=== PATIENT | male | born 1935 | race Asian ===

== ENCOUNTER 2024-08-28 19:34 | Inpatient (IN) | payer MEDICARE, MEDICAID, SELFPAY ==
[2024-08-28 19:35] VITALS: BMI 20.5
[2024-08-28 20:21] VITALS: BP 96/65; PULSE 69; RESP 18; TEMP 36.6; O2SAT 96
--- NOTE | 2024-08-28 20:32 | XR_ITS ---
Examination: CT abdomen and pelvis without contrast. Coronal 3-D reconstructions. Sagittal 2-D reconstructions. Date and time of exam:August 28, 2024 1023 hrs. Comparison March 02, 2022 Indications: Abdominal pain and difficulty urinating today CTDI: vol (mGy): 4.76 DLP: (mGycm): 268 Technique: Axial images of the abdomen have been obtained, 3 mm slice thickness Intravenous contrast material has not been administered. Low dose protocols were performed. One or more of the following dose reduction techniques were used; automated exposure control, adjustment of the mA and/or KV according to patient size, use of iterative reconstruction technique. Findings: 26 mm upper right lobe liver lesion 15 mm left lobe liver lesion Spleen not enlarged No gallstones No pancreatic mass Abdominal aortic calcification no aneurysmal dilatation No hydronephrosis Normal appendix No bowel obstruction Fluid distended small bowel loops, multiple in the pelvis Urinary bladder contracted around a Edwards catheter A small portion of the urinary bladder is present in a right inguinal hernia Transverse prostate dimension 4.3 cm Advanced degenerative disc disease L4-L5, L5-S1 Impression: Liver lesions as above, recommend hepatic sonography to assess for possible hemangiomas Fluid distended small bowel loops in the lower abdomen and pelvis, small bowel obstruction pattern Consider Gastrografin small bowel series follow-up Significant prostatomegaly A small portion of the urinary bladder is present in a right inguinal hernia
--- NOTE | 2024-08-28 20:33 | PD.EDRME ---
Rapid Medical Screening Exam RME Arrival date/time: 08/28/24 19:34 89-year-old male presents emergency department complaining of diffuse abdominal pain and difficulty urinating that started today. Chief Complaint: Urogenital-Male Time Seen by Provider: 08/28/24 20:27 Vital signs: Vital Signs Temperature 97.8 F 08/28/24 20:21 Pulse Rate 69 08/28/24 20:21 Respiratory Rate 18 08/28/24 20:21 Blood Pressure 96/65 08/28/24 20:21 Pulse Oximetry (%) 96 08/28/24 20:21 Oxygen Delivery Method Room Air 08/28/24 20:21 Vital signs reviewed by provider: Yes
[2024-08-28] MEDS: KETOROLAC INJ 60 MG/2 ML VIAL 30 MG IM (20:42)
[2024-08-28 21:28] LABS: Basophils % (Auto) 0 % (0-2.5); Eosinophils # (Auto) 0.4 Thou/mm3 (0.0-0.5); Eosinophils % (Auto) 6 % (0-10); Hematocrit 40.3 % (41.0-53.0); Hemoglobin 13.3 g/dL (13.5-16.0); Immature Granulocytes % (Auto) 0 % (0-0); Immature Granulocytes Auto 0.01 Thou/mm3 (0.00-0.00); Lymphocytes # (Auto) 1.8 Thou/mm3 (1.0-4.8); Lymphocytes % (Auto) 28 % (10-50); Mean Corpuscular Hemoglobin 30.9 pg (25.0-35.0); Mean Corpuscular Volume 94 fL (80-100); Monocytes # (Auto) 0.7 Thou/mm3 (0.0-0.8); Monocytes % (Auto) 10 % (0-12); Neutrophils # (Auto) 3.7 Thou/mm3 (1.8-7.7); Neutrophils % (Auto) 56 % (37-80); Nucleated Red Blood Cell % 0 /100 WBC (0); Platelet Count 289 Thou/mm3 (140-440); RDW Standard Deviation 46.2 fL (35.1-43.9); White Blood Count 6.7 Thou/mm3 (3.8-10.6)
[2024-08-28 22:03] LABS: Anion Gap 9 (7-16); Blood Urea Nitrogen 17 mg/dL (9-23); Chloride 102 mMol/L (98-107); Sodium 142 mMol/L (136-145)
[2024-08-28 22:04] LABS: Alanine Aminotransferase 18 U/L (10-49); Albumin, Serum 4.5 gm/dL (3.4-4.8); Albumin/Globulin Ratio 1.6 (1.2-2.2); Alkaline Phosphatase 91 U/L (46-116); Aspartate Amino Transferase 26 U/L (0-34); BUN/Creatinine Ratio 17 Ratio (12-20); Estimated Creatinine Clearance 40.1 mL/min (>60); Globulin 2.8 gm/dL (2.3-3.5); Glucose 121 mg/dL (74-106); Lipase 55 U/L (12-53); Osmolality,Calculated 285 (275-295); Total Protein 7.3 gm/dL (5.7-8.2); eGFR > 60 See Note
[2024-08-28 22:21] LABS: Collection Type, Urine Clean Catch; Squamous Epithelial Cell,Urine 0 /hpf (0-5)
[2024-08-28 22:38] LABS: Bilirubin,Urine Negative (Negative); Blood,Urine 3+ (Negative); Budding Yeast,Urine Present; Clarity,Urine Clear (Clear/Hazy); Color,Urine Lt-Yellow (Lt Yel-Yel); Glucose, Urine Negative (Negative); Ketones,Urine Negative (Negative); Leukocyte Esterase,Urine Positive (Negative); Nitrite,Urine Negative (Negative); Protein,Urine Trace (Neg - Trace); RBC,Urine 24 /hpf (0-3); Specific Gravity,Urine 1.016 (1.001-1.035); Urobilinogen,Urine Negative mg/dL (0.0-1.0); WBC,Urine 98 /hpf (0-5)
[2024-08-28 22:39] LABS: Culture Indicated,Urine Yes
[2024-08-28] MEDS: LIDOCAINE JELLY 2% (Urojet) 10 ML TUBE TOP (22:43)
--- NOTE | 2024-08-28 23:56 | PD.EDURI ---
Upper Respiratory Inf. RME/HPI General Chief Complaint: Urogenital-Male Stated Complaint: DIFFICULTY AND PAIN WITH URINATING Time Seen by Provider: 08/28/24 20:27 Arrival date/time: 08/28/24 19:34 89-year-old male presents emergency department complaining of diffuse abdominal pain and difficulty urinating that started today. RME / HPI RME / HPI Narrative: 08/28/24 19:34 89-year-old male presents emergency department complaining of diffuse abdominal pain and difficulty urinating that started today. Related Data Home Medications ?Medication ?Instructions ?Recorded ?Confirmed albuterol sulfate 90 mcg/actuation 2 puff inhalation Q4H PRN SOB 09/11/21 03/03/22 aerosol inhaler amlodipine 5 mg tablet 1 tab PO DAILY 03/03/22 03/03/22 atorvastatin 10 mg tablet 1 tab PO HS 03/03/22 03/03/22 loratadine 10 mg tablet 1 tab PO DAILY 03/03/22 03/03/22 montelukast 10 mg tablet 1 tab PO DAILY 03/03/22 03/03/22 Previous Rx's ?Medication ?Instructions ?Recorded fluticasone propionate 110 1 puff inhalation BID #12 grams 09/16/21 mcg/actuation HFA aerosol inhaler (Flovent HFA) codeine 10 mg-guaifenesin 100 mg/5 5 ml PO Q6H PRN cough #237 mL 05/17/22 mL oral liquid (Guaiatussin AC) [id number]-[id number] 5 10 ml PO Q4H PRN cough #237 mL 05/21/22 mg-10 mg-100 mg/5 mL oral liquid (Adult Robitussin Peak Cold M-S) benzonatate 200 mg capsule 200 mg PO BID PRN cough #20 caps 08/23/23 doxycycline monohydrate 100 mg 100 mg PO BID #20 tabs 08/23/23 tablet Allergies Allergy/AdvReac Type Severity Reaction Status Date / Time No Known Allergies Allergy Verified 08/23/23 08:44 Course Orders Category Date Time Status [place] to [place] Routine Care 08/28/24 20:[address] abdomen pelvis wo con Stat Exams 08/28/24 20:32 Completed CBC Stat Lab 08/28/24 20:49 Completed CMP [Comprehensive Metabolic Panel] Stat Lab 08/28/24 20:49 Completed Lipase Stat Lab 08/28/24 20:49 Completed Urinalysis, C/S if Indicated Stat Lab 08/28/24 22:00 Completed Urine Culture Stat Lab 08/28/24 22:00 Received Ketorolac Inj [Toradol Inj] Med 08/28/24 20:32 Discontinued 30 mg IM X1 ONE Lidocaine Jelly 2% Urojet [Xylocaine Jelly 2% Urojet] Med 08/28/24 21:49 Discontinued See Dose Instructions TOP X1 ONE Vital Signs Vital signs: Vital Signs Temperature 97.8 F 08/28/24 20:21 Pulse Rate 69 08/28/24 20:21 Respiratory Rate 18 08/28/24 20:21 Blood Pressure 96/65 08/28/24 20:21 Pulse Oximetry (%) 96 08/28/24 20:21 Oxygen Delivery Method Room Air 08/28/24 20:21 Upper Respiratory Infection Medications / Prescriptions Medication administrations:: Medication Administration History Discontinued Medications Ketorolac Tromethamine (Ketorolac Inj 60 Mg/2 Ml Vial) 30 mg IM X1 ONE Stop: 08/28/24 20:33 Last Admin: 08/28/24 20:42 Dose: 30 mg Documented By: Lidocaine HCl (Lidocaine Jelly 2% (Urojet) 10 Ml Tube) 0 ml TOP X1 ONE Stop: 08/28/24 21:50 Last Admin: 08/28/24 22:43 Dose: 10 ml Documented By: Discharge Plan Prescriptions/Referrals Prescriptions/Med Rec: No Action atorvastatin 10 mg tablet 1 tab PO HS montelukast 10 mg tablet 1 tab PO DAILY loratadine 10 mg tablet 1 tab PO DAILY Patient Comments: TAKE 1 TABLET BY MOUTH DAILY NEEDED FOR ALLERGIES amlodipine 5 mg tablet 1 tab PO DAILY Patient Comments: TAKE 1 TABLET BY MOUTH EVERY DAY FOR HIGH BLOOD PRESSURE codeine-guaifenesin [Guaiatussin AC] 10-100 mg/5 mL liquid 5 ml PO Q6H PRN (Reason: cough) Qty: 237 0RF albuterol sulfate 90 mcg/actuation HFA aerosol inhaler 2 puff INHALATION Q4H PRN (Reason: SOB) fluticasone propionate [Flovent HFA] 110 mcg/actuation HFA aerosol inhaler 1 puff inhalation BID Qty: 12 0RF Rx Instructions: administer with spacer Adult Robitussin Peak Cold M-S 5-10-100 mg/5 mL liquid 10 ml PO Q4H PRN (Reason: cough) Qty: 237 0RF doxycycline monohydrate 100 mg tablet 100 mg PO BID Qty: 20 0RF benzonatate 200 mg capsule 200 mg PO BID PRN (Reason: cough) Qty: 20 0RF Patient/Caregiver Discharge Instructions Print Language: Sami
[2024-08-29] VITALS (9 sets, daily range): BP systolic 132–176; BP diastolic 72–96; PULSE 68–86; RESP 15–18; TEMP 36.6–37.1; O2SAT 94–99; BMI 20.5
--- NOTE | 2024-08-29 01:56 | PC.NURSE ---
RECEIVED PT FROM [facility], PT CAME BECAUSE HE IS UNABLE TO URINATE, RME NURSE INSERTED MOREAU AND LEG BAG APPLIED, SMALL AMOUNT OF URINE CAME OUT AFTER. PT ALSO C/O ABD PAIN.
--- NOTE | 2024-08-29 02:19 | EDNOTE_ITS ---
ED Male Genitalurinary RME/HPI General Chief complaint: Urogenital-Male Stated complaint: DIFFICULTY AND PAIN WITH URINATING Time Seen by Provider: 08/28/24 20:27 Source: patient Arrival date/time: 08/28/24 19:34 Mode of arrival: ambulatory Limitations: no limitations RME / HPI RME / HPI Narrative: DR MARTA COULTER ED EVALUATION: 89-year-old male who presents to the emergency department via private auto for complaints of difficulty urinating. Patient also notes pain when urination. Patient also reports generalized abdominal pain. Denies any other symptoms. Related Data Home Medications ?Medication ?Instructions ?Recorded ?Confirmed albuterol sulfate 90 mcg/actuation 2 puff inhalation Q4H PRN SOB 09/11/21 03/03/22 aerosol inhaler amlodipine 5 mg tablet 1 tab PO DAILY 03/03/22 03/03/22 atorvastatin 10 mg tablet 1 tab PO HS 03/03/22 03/03/22 loratadine 10 mg tablet 1 tab PO DAILY 03/03/22 03/03/22 montelukast 10 mg tablet 1 tab PO DAILY 03/03/22 03/03/22 Previous Rx's ?Medication ?Instructions ?Recorded fluticasone propionate 110 1 puff inhalation BID #12 grams 09/16/21 mcg/actuation HFA aerosol inhaler (Flovent HFA) codeine 10 mg-guaifenesin 100 mg/5 5 ml PO Q6H PRN cough #237 mL 05/17/22 mL oral liquid (Guaiatussin AC) [id number]-FT-nbpuvllajno 5 10 ml PO Q4H PRN cough #237 mL 05/21/22 mg-10 mg-100 mg/5 mL oral liquid (Adult Robitussin Peak Cold M-S) benzonatate 200 mg capsule 200 mg PO BID PRN cough #20 caps 08/23/23 doxycycline monohydrate 100 mg 100 mg PO BID #20 tabs 08/23/23 tablet Allergies Allergy/AdvReac Type Severity Reaction Status Date / Time No Known Allergies Allergy Verified 08/23/23 08:44 Review of Systems Review of Systems Systems Reviewed: All systems reviewed, normal except as documented Past Medical History Past Medical History CARDIAC: Positive Cardiac Disorders; Negative Congestive Heart Failure RESPIRATORY: Positive Chronic Obstructive Pulmonary Disease (COPD); Negative Asthma GENITOURINARY: Negative Renal Disease ENDOCRINE: Negative Diabetes Mellitus Type 1 or Diabetes Mellitus Type 2 HEMATOLOGIC: Negative Sickle Cell Disease Social History SMOKING STATUS: Never smoker ED Exam Narrative Physical exam: GENERAL APPEARANCE: alert and oriented x 4, well-developed, well-nourished, no acute distress VITALS: All vitals were reviewed and the pulse ox is 95% on room air, which is normal according to my interpretation. HEENT: Normocephalic, atraumatic; pupils equal, round, reactive to light; EOMI; mucous membranes pink, moist; oropharynx clear NECK: Supple LUNGS: CTABL; no wheezes, no rales, no rhonchi HEART: Regular rate, regular rhythm; normal S1, S2; no murmurs ABDOMEN: non distended; normal BS; soft, no tenderness, no guarding, no rebound; no masses, no organomegaly, no hernia BACK: no CVA tenderness EXTREMITIES: atraumatic; no edema NEUROLOGIC: awake; alert and oriented x4; cranial nerves II-XII grossly intact; no focal sensory or motor deficits PSYCHIATRIC: appropriate mood and affect SKIN: warm, dry, normal color; no rashes General Limitations: Present no limitations Course Quality Measures none Orders Category Date Time Status [place] to [place] Routine Care 08/28/24 20:[address] abdomen pelvis wo con Stat Exams 08/28/24 20:32 Completed CBC Stat Lab 08/28/24 20:49 Completed CMP [Comprehensive Metabolic Panel] Stat Lab 08/28/24 20:49 Completed Lipase Stat Lab 08/28/24 20:49 Completed Urinalysis, C/S if Indicated Stat Lab 08/28/24 22:00 Completed Urine Culture Stat Lab 08/28/24 22:00 Received Ketorolac Inj [Toradol Inj] Med 08/28/24 20:32 Discontinued 30 mg IM X1 ONE Lidocaine Jelly 2% Urojet [Xylocaine Jelly 2% Urojet] Med 08/28/24 21:49 Discontinued See Dose Instructions TOP X1 ONE Vital Signs Vital signs: Vital Signs Temperature 97.8 F 08/28/24 20:21 Pulse Rate 69 08/28/24 20:21 Respiratory Rate 18 08/28/24 20:21 Blood Pressure 96/65 08/28/24 20:21 Pulse Oximetry (%) 96 08/28/24 20:21 Oxygen Delivery Method Room Air 12/15/24 20:21 Urogenital - Male MDM Narrative MDM Narrative:: Scribe Attestation: I, Elsa Vasquez, am scribing for and in the presence of Dr. Gomes. Provider Notation: Although this document has been carefully reviewed, there may still be some phonetic and other typographical errors. These errors are purely grammatical due to imperfections in the software program and should not be construed in any way to compromise the substance of the patient's medical care during this visit. Patient data External records reviewed:: [facility] previous records Clinical information provided by:: patient Social determinants that could affect healthcare access:: none Patient has the following chronic illnesses:: COPD How is presenting disease/condition affected by chronic disease/condition?: uneffected by Evaluation data The following diagnostics were reviewed and interpreted by me:: lab results and radiology exam(s) Lab and/or radiology exams considered but not ordered:: n/a Interpretation Summary: I personally reviewed the radiology data and agree with the radiologist's interpretation. Examination: CT abdomen and pelvis without contrast. Coronal 3-D reconstructions. Sagittal 2-D reconstructions. Date and time of exam:August 28, 2024 1023 hrs. Comparison March 02, 2022 Indications: Abdominal pain and difficulty urinating today Findings: 26 mm upper right lobe liver lesion 15 mm left lobe liver lesion Spleen not enlarged No gallstones No pancreatic mass Abdominal aortic calcification no aneurysmal dilatation No hydronephrosis Normal appendix No bowel obstruction Fluid distended small bowel loops, multiple in the pelvis Urinary bladder contracted around a Edwards catheter A small portion of the urinary bladder is present in a right inguinal hernia Transverse prostate dimension 4.3 cm Advanced degenerative disc disease L4-L5, L5-S1 Impression: Liver lesions as above, recommend hepatic sonography to assess for possible hemangiomas Fluid distended small bowel loops in the lower abdomen and pelvis, small bowel obstruction pattern Consider Gastrografin small bowel series follow-up Significant prostatomegaly A small portion of the urinary bladder is present in a right inguinal hernia Dictated By: Alexey Ramos MD Medications / Prescriptions Medications or Prescriptions considered but not ordered:: n/a Medication administrations:: Medication Administration History Acetaminophen (Acetaminophen 325 Mg Tablet) 650 mg PO Q6H PRN PRN Reason: Pain 1-3 or Fever >100.3 Stop: 09/28/24 04:25 Heparin Sodium (Porcine) (Heparin Sod Inj 5000 Unit/Ml Vial) 5,000 unit SC Q12HR MONALISA Stop: 09/12/24 08:59 Ondansetron HCl (Ondansetron Inj 2 Mg/Ml Inj 2 Ml) 4 mg IV Q6H PRN; Protocol PRN Reason: NAUSEA OR VOMITING Stop: 09/28/24 04:25 Discontinued Medications Ketorolac Tromethamine (Ketorolac Inj 60 Mg/2 Ml Vial) 30 mg IM X1 ONE Stop: 08/28/24 20:33 Last Admin: 08/28/24 20:42 Dose: 30 mg Documented By: Lidocaine HCl (Lidocaine Jelly 2% (Urojet) 10 Ml Tube) 0 ml TOP X1 ONE Stop: 08/28/24 21:50 Last Admin: 08/28/24 22:43 Dose: 10 ml Documented By: as above Consultations Consultation(s) initiated? (list below): Yes Consultation #1 (Physician, Specialty, Details): Hospitalist made aware of the patient?s HPI, PMHx, lab and/or radiology results. Treatment plan was discussed. Will admit for further evaluation and management. Accepts patient for admission. Time: 02:50 Diagnosis Urogenital Male Differential Diagnosis: urinary tract infection, epididymitis, prostatitis, acute retention of urine and inguinal hernia Admission Indicated Admission indicated?: indicated Admission Request Was there a request for admission?: Yes Admission Attestation Admission request attestation: Discussed case with [] from Hospitalist service regarding admission. Discussed patients ED course, exam findings, labs, and radiology results. The Hospitalist [agrees,declines] to accept the patient for admission. Disposition Plan Disposition Plan: Admit Discharge Plan Plan Patient Disposition: HOME (Self Care) Disposition Comment: Stable Patient/Caregiver Discharge Instructions Discharge Activity: activity as tolerated
[2024-08-29 05:36] LABS: Basophils % (Auto) 0 % (0-2.5); Eosinophils # (Auto) 0.2 Thou/mm3 (0.0-0.5); Eosinophils % (Auto) 2 % (0-10); Hematocrit 36.2 % (41.0-53.0); Hemoglobin 12.3 g/dL (13.5-16.0); Immature Granulocytes % (Auto) 0 % (0-0); Immature Granulocytes Auto 0.03 Thou/mm3 (0.00-0.00); Lymphocytes # (Auto) 1.5 Thou/mm3 (1.0-4.8); Lymphocytes % (Auto) 16 % (10-50); Mean Corpuscular Hemoglobin 31.4 pg (25.0-35.0); Mean Corpuscular Volume 92 fL (80-100); Monocytes # (Auto) 0.9 Thou/mm3 (0.0-0.8); Monocytes % (Auto) 10 % (0-12); Neutrophils # (Auto) 6.8 Thou/mm3 (1.8-7.7); Neutrophils % (Auto) 72 % (37-80); Nucleated Red Blood Cell % 0 /100 WBC (0); Platelet Count 252 Thou/mm3 (140-440); RDW Standard Deviation 45.5 fL (35.1-43.9); Red Blood Count 3.92 Miln/mm3 (4.50-5.90); White Blood Count 9.4 Thou/mm3 (3.8-10.6)
[2024-08-29 05:59] LABS: Alanine Aminotransferase 17 U/L (10-49); Albumin, Serum 4.2 gm/dL (3.4-4.8); Albumin/Globulin Ratio 1.8 (1.2-2.2); Alkaline Phosphatase 75 U/L (46-116); Anion Gap 8 (7-16); Aspartate Amino Transferase 11 U/L (0-34); BUN/Creatinine Ratio 20 Ratio (12-20); Bilirubin,Total 0.7 mg/dL (0.3-1.2); Blood Urea Nitrogen 22 mg/dL (9-23); Calcium 8.9 mg/dL (8.3-10.6); Calcium (Corrected) 8.9 mg/dL (8.5-10.1); Carbon Dioxide 29.2 mMol/L (20.0-31.0); Cardiac Risk Estimate 2.2 RATIO (4.0-6.7); Chloride 102 mMol/L (98-107); Cholesterol 119 mg/dL (132-200); Creatinine (Component) 1.1 mg/dL (0.6-1.3); Estimated Creatinine Clearance 36.4 mL/min (>60); Globulin 2.4 gm/dL (2.3-3.5); Glucose 105 mg/dL (74-106); HDL Cholesterol 54 mg/dL (40-60); LDL Cholesterol,Calculated 44 mg/dL (0-130); Magnesium 1.8 mg/dL (1.6-2.6); Osmolality,Calculated 280 (275-295); Sodium 139 mMol/L (136-145); Thyroid Stimulating Hormone 0.56 uIU/mL (0.55-4.78); Total Protein 6.6 gm/dL (5.7-8.2); Triglycerides 105 mg/dL (30-150); eGFR > 60 See Note
[2024-08-29] MEDS: ACETAMINOPHEN 500 MG TABLET PO (06:34)
--- NOTE | 2024-08-29 06:39 | XR_ITS ---
Examination: Small bowel series with KUBs AP supine abdomen 4 views Exam date and time: August 29, 2024 0812 hours INDICATIONS: Abdominal pain and distention this week, dilated small bowel loops on CT abdomen pelvis August 28, 2024 10:23 PM TECHNIQUE AND FINDINGS: Soil Surveyor AP supine abdomen single view demonstrates air distended small bowel loops Patient received 120 cc Gastrografin, immediate 40 minutes one hour films obtained Contrast in mildly distended small bowel loops Contrast in the right colon at 1 hour IMPRESSION: Negative for small bowel obstruction One additional one hour delayed film recommended
--- NOTE | 2024-08-29 06:47 | PD.RESHP ---
Documentation for date of: 08/29/24 [facility] History of Present Illness History of present illness: The patient is an 89-year-old male with past medical history of hypertension and hyperlipidemia who presented to the ED on 08/29/2024 complaints of abdominal pain and difficulty urinating of 5 days duration. Patient is a poor historian as well as son at bedside, but the report that for the past 5 days has had abdominal pain intermittently, not associated nausea vomiting constipation or diarrhea, last bowel movement was in the ED. He also reported that he has had difficulty urinating and a very weak stream as well as hesitancy in the same duration. The patient was found to have a UTI and was prescribed Bactrim about 2 days ago, but 3 presented with persistent pain. He has not had a similar episode in the past and has otherwise been healthy. ED course: In ED, patient was febrile and hypertensive, complaining of abdominal pain. Labs showed WBC 9.4 Hgb 12.3 PLT 252. CMP- Unremarkable UA positive for 3+ blood, 24RBCs and 98WBCs, but no bacteria. CTAP showed fluid distended loops with a small bowel obstruction pattern and significant prostatomegaly. The patient is being admitted for observation and rule out of SBO Review of Systems Review of Systems Narrative Review of Systems: GENERAL: Denies fevers/chills or diaphoresis. HEENT: Denies headache or visual/hearing changes. Denies nasal discharge. NEURO: Denies unusual weakness or difficulty speaking. CARDIO: Denies chest pain or palpitations. PULM: Denies SOB, coughing, or wheezing. GI: Admits abdominal pain, denies N/V/C/D/reflux/gas, bright red blood per rectum or melena. Reports having BMs. URO: Denies burning/itching/pain. Admits difficulty urinating MSK/EXT/SKIN: Denies joint/skeletal/muscle pain, issues/changes in upper or lower extremities, itchiness, or superficial pain. PSYCH: Cooperative, pleasant mood & affect. Exam Vital Signs Temp Pulse Resp BP Pulse Ox O2 Del Method 98.8 F 71 16 169/79 H 98 Room Air 08/29/24 06:07 08/29/24 05:53 08/29/24 05:53 08/29/24 05:53 08/29/24 05:53 08/29/24 05:53 Narrative Exam GENERAL: AAOX3 NEURO: INSTRUMENTATION AND CONTROLS TECHNICIAN grossly intact, moves extremities x4 HEENT: Moist mucosa. Eyes open, symmetrical, & clear CARDIO: No chest pain on palpation. Heart RRR, no obvious murmurs PULM: No noted coughing/dyspnea. Lungs CTA B/L GI: Abdomen soft, nondistended, mildly tender suprapubic on palpation. BSx4 URO/NAIL KEGGER:: No further abnormalities noted. SKIN/MSK/EXT: No wounds/rashes/edema/amputations, no pain on palpation. Pedal pulses present B/L Results: Labs 08/29/24 15:01 08/29/24 05:14 Labs: Short CBC 08/28/24 08/29/24 Range/Units 20:49 05:14 WBC 6.7 9.4 D (3.8-10.6) Thou/mm3 Hgb 13.3 L 12.3 L (13.5-16.0) g/dL Hct 40.3 L 36.2 L (41.0-53.0) % Plt Count 289 252 D (140-440) Thou/mm3 [facility] 08/28/24 08/29/24 20:49 05:14 Sodium 142 139 Potassium 4.0 4.0 Chloride 102 102 Carbon Dioxide 31.0 29.2 BUN 17 22 Creatinine 1.0 1.1 Glucose 121 H 105 Calcium 10.0 8.9 Liver Function 08/28/24 08/29/24 Range/Units 20:49 05:14 Total Bilirubin 1.0 0.7 (0.3-1.2) mg/dL AST 26 11 (0-34) U/L ALT 18 17 (10-49) U/L Alkaline Phosphatase 91 75 (46-116) U/L Albumin 4.5 4.2 (3.4-4.8) gm/dL Urine 08/28/24 Range/Units 22:00 Urine Color Lt-Yellow (Lt Yel-Yel) Urine Clarity Clear (Clear/Hazy) Urine pH 6.0 (5.0-7.0) Ur Specific [place] 1.016 (1.001-1.035) Urine Protein Trace (Neg - Trace) Urine Glucose (UA) Negative (Negative) Quality Measures Quality Measures none Advance care planning discussed with:: patient and child Medications Home Medications and Allergies Home Medications ?Medication ?Instructions ?Recorded ?Confirmed ?Type albuterol sulfate 90 mcg/actuation 2 puff inhalation Q4H PRN SOB 09/11/21 08/29/24 History aerosol inhaler allopurinol 100 mg tablet 200 mg PO DAILY 08/29/24 08/29/24 History atorvastatin 20 mg tablet 20 mg PO HS 08/29/24 08/29/24 History fluticasone fur. 100 mcg-umeclid 1 inh inhalation DAILY 08/29/24 08/29/24 History 62.5 mcg-vilant 25 mcg inhalat.powder (Trelegy Ellipta) montelukast 10 mg tablet 10 mg PO DAILY 08/29/24 08/29/24 History Allergies Allergy/AdvReac Type Severity Reaction Status Date / Time No Known Allergies Allergy Verified 08/23/23 08:44 Visit Medications Acetaminophen (Acetaminophen 325 Mg Tablet) 650 mg PO Q6H PRN PRN Reason: Pain 1-3 or Fever >100.3 Stop: 09/28/24 04:25 Heparin Sodium (Porcine) (Heparin Sod Inj 5000 Unit/Ml Vial) 5,000 unit SC Q12HR MONALISA Stop: 09/12/24 08:59 Ondansetron HCl (Ondansetron Inj 2 Mg/Ml Inj 2 Ml) 4 mg IV Q6H PRN; Protocol PRN Reason: NAUSEA OR VOMITING Stop: 09/28/24 04:25 Discontinued Medications Acetaminophen (Acetaminophen 500 Mg Tablet) 500 mg PO X1 STA Stop: 08/29/24 06:16 Last Admin: 08/29/24 06:34 Dose: 500 mg Ketorolac Tromethamine (Ketorolac Inj 60 Mg/2 Ml Vial) 30 mg IM X1 ONE Stop: 08/28/24 20:33 Last Admin: 08/28/24 20:42 Dose: 30 mg Lidocaine HCl (Lidocaine Jelly 2% (Urojet) 10 Ml Tube) 0 ml TOP X1 ONE Stop: 08/28/24 21:50 Last Admin: 08/28/24 22:43 Dose: 10 ml Assessment & Plan Assessment Summary: The patient is an 89-year-old male with a past medical history of hypertension hyperlipidemia who presented to the ED on 08/29/2024 with complaints of abdominal pain and difficulty urinating of [address] abdomen pelvis showed distended loops of the small bowel obstruction and significant prostatomegaly. #Small bowel obstruction rule out Patient presenting with a 5-day history of abdominal pain. He denied associated nausea, vomiting, constipation and diarrhea and reports that he has been having bowel movements with the last bowel movement being during his ED visit. On examination, patient has no abdominal distention. CT abdomen pelvis showed fluid distended loops with small bowel obstruction pattern. Plan: -Admit to [facility] obs -Consider follow-up imaging #Prostatomegaly #?Benign prostatic hyperplasia The patient presented with a 5-day history of abdominal pain and difficulty urinating. He has not had a similar symptom in the past and has never seen urology. CT abdomen showed significant prostatomegaly. The patient had Edwards catheter inserted in the ED and that improved his pain. Patient was said to have only had about 350 mL. Plan: -Consider tamsulosin -Patient will benefit from urology follow-up #History of hypertension #History of hyperlipidemia The patient is on atorvastatin 20 mg p.o. but states he is not on any medications for hypertension. Blood pressure on admission was elevated at 163/79. Plan: -Lisinopril 10 mg daily -Continue atorvastatin 20 mg Health maintenance: Dispo: MedSurg Obs Diet: NPO DVT: SC Heparin Edwards: None Lines: Peripheral Med Rec: Pending, f/u PT: Not ordered Code: Full Case was discussed with attending physician, Dr Jessica Muro MD PGY-1 Attending Provider Attestation/Addendum 89-year-old male patient with hypertension, hyperlipidemia, BPH, asthma presents with difficulty urinating and been treated for UTI with Bactrim. Patient has symptoms of urinary retention. He complained of abdominal pain moderate mainly in the lower quadrant region. He denies nausea and vomiting. He has no weight loss. The patient was found to have small bowel obstruction on CT scan. He has prostatomegaly. Patient was inserted the Edwards catheter. He drained clear urine no blood. He is also being admitted for SBO found on CT scan.
[2024-08-29] MEDS: HEPARIN SOD INJ 5000 UNIT/ML VIAL SC (09:33)
--- NOTE | 2024-08-29 10:25 | XR_ITS ---
Examination: Abdomen AP single view Technique: AP portable supine abdomen, single view Exam date and time: August 29, 2024 1033 hours INDICATIONS: Two-hour delayed film post small bowel series today, abdominal pain and distention FINDINGS: Contrast in the colon IMPRESSION: Negative for small bowel obstruction
[2024-08-29 15:11] LABS: Hematocrit 39.6 % (41.0-53.0); Hemoglobin 13.4 g/dL (13.5-16.0)
[2024-08-29] MEDS: HYDROcodone/APAP 5/325 TABLET 1 TAB PO (16:04)
--- NOTE | 2024-08-29 17:07 | ESPR_ITS ---
<Statement entered by Alton Connell MD - 08/29/24 18:09> Patient was seen and examined at the bedside. Patient was admitted for small bowel obstruction pattern seen on CT scan abdomen however patient has been having bowel movements. Another reason for keeping the patient today is hematuria seen in Edwards catheter we added tamsulosin and perform manual bladder irrigation. Resumed his diet which he tolerated well. Family was explained that we will keep him and likely observe any further bleeding/hematuria from the bladder tomorrow morning. Repeat H&H was was stable. Continue current management. All labs and orders were reviewed. I saw and examined the patient, and I agree with current management stated by Dr Arnie MD,PGY1. Plan of care was discussed with the attending physician and resident physician. Disclaimer: Despite multiple revisions, due to the dictation software being used, the document bellow may not be free of grammatical errors including phonetic/typographic errors. However, this does not deter from our commitment to providing health care in the patient's best interest in mind. Dr. Becki MD, PGY 2 Documentation for date of: 08/29/24 Subjective Subjective Interval history: Patient speaks Tagalog interaction facilitated by registered healthcare architecture technician. Patient was seen and examined at bedside this AM. No acute exents overnight. Patient tolerating diet, adequate urine output and mentation is at baseline. Patient states that he is currently passing flatus and had a bowel movement in the ED this a.m. Patient was started on diet and was anticipated to be discharged. However he developed hematuria from his Edwards catheter secondary to his BPH and is currently being held for investigation Exam Vital Signs Temp Pulse Resp BP Pulse Ox O2 Del Method 98.4 F 86 17 142/72 H 95 Room Air 08/29/24 16:35 08/29/24 16:35 08/29/24 16:35 08/29/24 16:35 08/29/24 16:35 08/29/24 16:35 Narrative Exam Constitutional Alert, oriented x 3 and comfortable. Elderly male, cachectic, temporal wasting HEENT Vision grossly intact. Patent nares. Trachea midline Respiratory Chest normal on inspection and clear auscultation bilaterally Cardiovascular S1 and S2 audible, RRR. No murmurs carotid bruit. No gross JVD. Abdominal Soft and non tender to palpation in all quadrants. BS + Genitourinary No bladder tenderness, no flank pain. Normal to palpation Musculoskeletal Extremities tone within normal limits. No LE edema. Neurological CN II - XII grossly intact. Extremity motor and sensation grossly intact. Skin Warm, dry and intact. No apparent lesions. Psychiatric Patient has good affect, is cooperative Objective Labs 08/30/24 04:19 08/30/24 04:19 Labs: Laboratory Results - last 24 hr 08/28/24 08/28/24 08/29/24 20:49 22:00 05:14 WBC 6.7 9.4 D RBC 4.30 L 3.92 L Hgb 13.3 L 12.3 L Hct 40.3 L 36.2 L MCV 94 92 MCH 30.9 31.4 MCHC 33.0 34.0 RDW Std Deviation 46.2 H 45.5 H Plt Count 289 252 D Neut % (Auto) 56 72 Lymph % (Auto) 28 16 [place] % (Auto) 10 10 Eos % (Auto) 6 2 Baso % (Auto) 0 0 Neut # (Auto) 3.7 6.8 Lymph # (Auto) 1.8 1.5 [place] # (Auto) 0.7 0.9 H Eos # (Auto) 0.4 0.2 Baso # (Auto) 0.0 0.0 Immature Gran # (Auto) 0.01 H 0.03 H Absolute Nucleated RBC 0.00 0.00 Immature Gran % 0 0 Nucleated RBC % 0 0 Sodium 142 139 Potassium 4.0 4.0 Chloride 102 102 Carbon Dioxide 31.0 29.2 Anion Gap 9 8 BUN 17 22 Creatinine 1.0 1.1 Estim Creat Clear Calc 40.1 L 36.4 L eGFR > 60 > 60 BUN/Creatinine Ratio 17 20 Glucose 121 H 105 Calculated Osmolality 285 280 Calcium 10.0 8.9 Corrected Calcium 10.0 8.9 Magnesium 1.8 Total Bilirubin 1.0 0.7 AST 26 11 ALT 18 17 Alkaline Phosphatase 91 75 Total Protein 7.3 6.6 Albumin 4.5 4.2 Globulin 2.8 2.4 Albumin/Globulin Ratio 1.6 1.8 Triglycerides 105 Cholesterol 119 L LDL Cholesterol, Calc 44 HDL Cholesterol 54 Cholesterol/HDL Ratio 2.2 L Lipase 55 H TSH 0.56 Ur Collection Type Clean Catch Urine Color Lt-Yellow Urine Clarity Clear Urine pH 6.0 Ur Specific [place] 1.016 Urine Protein Trace Urine Glucose (UA) Negative Urine Ketones Negative Urine Blood 3+ A Urine Nitrite Negative Urine Bilirubin Negative Urine Urobilinogen (Auto) Negative Ur Leukocyte Esterase Positive Urine RBC 24 H Urine WBC 98 H Ur Squamous Epith Cells 0 Urine Bacteria None Urine Yeast (Budding) Present A Ur Culture Indicated? Yes 08/29/24 15:01 WBC RBC Hgb 13.4 L Hct 39.6 L MCV MCH MCHC RDW Std Deviation Plt Count Neut % (Auto) Lymph % (Auto) [place] % (Auto) Eos % (Auto) Baso % (Auto) Neut # (Auto) Lymph # (Auto) [place] # (Auto) Eos # (Auto) Baso # (Auto) Immature Gran # (Auto) Absolute Nucleated RBC Immature Gran % Nucleated RBC % Sodium Potassium Chloride Carbon Dioxide Anion Gap BUN Creatinine Estim Creat Clear Calc eGFR BUN/Creatinine Ratio Glucose Calculated Osmolality Calcium Corrected Calcium Magnesium Total Bilirubin AST ALT Alkaline Phosphatase Total Protein Albumin Globulin Albumin/Globulin Ratio Triglycerides Cholesterol LDL Cholesterol, Calc HDL Cholesterol Cholesterol/HDL Ratio Lipase TSH Ur Collection Type Urine Color Urine Clarity Urine pH Ur Specific [place] Urine Protein Urine Glucose (UA) Urine Ketones Urine Blood Urine Nitrite Urine Bilirubin Urine Urobilinogen (Auto) Ur Leukocyte Esterase Urine RBC Urine WBC Ur Squamous Epith Cells Urine Bacteria Urine Yeast (Budding) Ur Culture Indicated? Quality Measures Quality Measures none Advance care planning discussed with:: patient Assessment & Plan Assessment Current Active Medications: Generic Name Dose Route Start Last Admin Trade Name Freq PRN Reason Stop Dose Admin Acetaminophen 650 mg 08/29/24 04:26 Acetaminophen 325 Mg Tablet PO 09/28/24 04:25 Q6H PRN Pain 1-3 or Fever >100.3 Hydrocodone Bitart/Acetaminophen 1 tab 08/29/24 14:29 Hydrocodone/Apap 5/325 Tablet PO 09/03/24 14:28 Q6HR PRN pain 4-7 Albuterol 2 puff 08/29/24 14:30 Albuterol Inh 8 Gm INH 09/28/24 14:29 Q4H PRN SHORTNESS OF BREATH Atorvastatin Calcium 20 mg 08/29/24 21:00 Atorvastatin Calcium 20 Mg Tablet PO 09/28/24 20:59 HS MONALISA Heparin Sodium (Porcine) 5,000 unit 08/29/24 09:00 08/29/24 09:33 Heparin Sod Inj 5000 Unit/Ml Vial SC 09/12/24 08:59 5,000 unit Q12HR MONALISA Administration Hydralazine HCl 10 mg 08/29/24 15:25 Hydralazine Inj 20 Mg/Ml Vial IV 09/28/24 15:24 Q4H PRN SBP > 180 AND HR < 100 Lisinopril 10 mg 08/29/24 09:00 Lisinopril 2.5 Mg Tablet PO 09/28/24 08:59 QDAY [facility] Montelukast Sodium 10 mg 08/30/24 09:00 Montelukast Sodium 10 Mg Tablet PO 09/29/24 08:59 DAILY [facility] Ondansetron HCl 4 mg 08/29/24 04:26 Ondansetron Inj 2 Mg/Ml Inj 2 Ml IV 09/28/24 04:25 Q6H PRN NAUSEA OR VOMITING Protocol Tamsulosin HCl 0.4 mg 08/29/24 21:00 Tamsulosin Hcl 0.4 Mg Capsule PO 09/28/24 20:59 HS MONALISA Plan Patient is 89-year-old male with a past medical history significant for essential hypertension, hyperlipidemia, BPH. Presented to the ED with a chief complaint of abdominal pain and difficulty urinating for 5 days. Patient was admitted for small bowel obstruction. 1. Small bowel obstruction?resolved Patient presented with abdominal pain Abdomen/pelvis CT significant for multiple liver lesions, fluid distended small bowel loops in lower abdomen and pelvis, SBO pattern, significant prostatomegaly. A small portion of urinary bladder and right inguinal hernia. Small bowel series showed resolution of SBO Patient is now passing flatus and had a bowel movement in the ED Plan: ? Allow cardiac diet 2. Gross Hematuria, likely 2/2 trauma Patient developed hematuria from his Edwards catheter Most likely secondary to traumatic cateterization and Heparin Plan: ? For manual irrigation of Edwards catheter ? For repeat H&H - Possible Urology consult 3. BPH Patient not on any home medication Significant prostatomegaly seen on CT scan Plan: ? Start tamsulosin 0.4 Mg p.o. at bedtime 4. Essential hypertension 5. Hyperlipidemia Patient not on any antihypertensives at home. Atorvastatin 20 Mg p.o. is as home medication Plan: ? Continue lisinopril 10 Mg p.o. daily ? Continue atorvastatin 20 Mg p.o. daily 6. Asthma Patient's home medications Singulair, albuterol inhaler and Trelegy Plan: ? Resume home medication Singulair 10 Mg p.o. daily ? DuoNebs ? Albuterol inhaler 2 puffs as needed Health maintenance: Disposition: Monitoring of hematuria and possible urology consult Diet: Cardiac Lines: pIVs GI Prophylaxis: None Thrombo Prophylaxis: None Code status: FULL CODE Plan of care discussed with Attending Dr. Lovelace and PGY2 Dr. Becki Gaitan MD PGY 1 Attending Provider Attestation/Addendum IShey, DO, attest that I was physically present for the walker portions of the service and evaluated the patient with the resident and I reviewed and discussed the case with the resident and agree with the resident's findings and plans of care as documented above Patient seen and evaluated in the ER this morning. Patient reports feeling improved and has had 4 bowel movements since receiving Gastrografin. KUB shows no evidence of SBO at this time. However, patient has gross hematuria and Edwards to leg bag. Will continue with manual irrigation through the sideport of Edwards catheter. Will continue to trend H&H as well. Patient continues to have mild tenderness in his lower abdomen. If hematuria does not resolve, will consider urology consult. Will add Flomax due to BPH. Patient remains hemodynamically stable at this time.
[2024-08-29] MEDS: ATORVASTATIN CALCIUM 20 MG TABLET PO (20:19)
[2024-08-29] MEDS: Artificial Tears 225 DROP/15 ML BTL BOTH EYES (20:19)
[2024-08-29] MEDS: TAMSULOSIN HCL 0.4 MG CAPSULE PO (20:19)
[2024-08-29] MEDS: MELATONIN 3 MG TABLET PO (20:58)
[2024-08-30] VITALS (10 sets, daily range): BP systolic 111–150; BP diastolic 54–84; PULSE 54–89; RESP 16–96; TEMP 36.4–37.1; O2SAT 94–97
[2024-08-30] MEDS: HYDROcodone/APAP 5/325 TABLET 1 TAB PO ×3 (02:23→19:23)
[2024-08-30 05:25] LABS: Basophils % (Auto) 0 % (0-2.5); Eosinophils # (Auto) 0.6 Thou/mm3 (0.0-0.5); Eosinophils % (Auto) 10 % (0-10); Hematocrit 34.8 % (41.0-53.0); Hemoglobin 11.6 g/dL (13.5-16.0); Immature Granulocytes % (Auto) 0 % (0-0); Immature Granulocytes Auto 0.01 Thou/mm3 (0.00-0.00); Lymphocytes # (Auto) 1.4 Thou/mm3 (1.0-4.8); Lymphocytes % (Auto) 24 % (10-50); Mean Corpuscular HGB Conc 33.3 g/dl (31.0-37.0); Mean Corpuscular Hemoglobin 31.1 pg (25.0-35.0); Mean Corpuscular Volume 93 fL (80-100); Monocytes # (Auto) 0.6 Thou/mm3 (0.0-0.8); Monocytes % (Auto) 9 % (0-12); Neutrophils # (Auto) 3.4 Thou/mm3 (1.8-7.7); Neutrophils % (Auto) 57 % (37-80); Nucleated Red Blood Cell % 0 /100 WBC (0); Platelet Count 240 Thou/mm3 (140-440); RDW Standard Deviation 46.5 fL (35.1-43.9); Red Blood Count 3.73 Miln/mm3 (4.50-5.90); White Blood Count 6.1 Thou/mm3 (3.8-10.6)
[2024-08-30 06:03] LABS: Alanine Aminotransferase 15 U/L (10-49); Albumin, Serum 4.1 gm/dL (3.4-4.8); Albumin/Globulin Ratio 1.8 (1.2-2.2); Alkaline Phosphatase 65 U/L (46-116); Anion Gap 7 (7-16); Aspartate Amino Transferase 20 U/L (0-34); BUN/Creatinine Ratio 15 Ratio (12-20); Bilirubin,Total 1.1 mg/dL (0.3-1.2); Blood Urea Nitrogen 15 mg/dL (9-23); Calcium 8.9 mg/dL (8.3-10.6); Calcium (Corrected) 8.9 mg/dL (8.5-10.1); Carbon Dioxide 29.6 mMol/L (20.0-31.0); Chloride 103 mMol/L (98-107); Estimated Creatinine Clearance 40.1 mL/min (>60); Globulin 2.3 gm/dL (2.3-3.5); Glucose 104 mg/dL (74-106); Magnesium 1.9 mg/dL (1.6-2.6); Osmolality,Calculated 280 (275-295); Phosphorous 3.2 mg/dL (2.4-5.1); Potassium 3.4 mMol/L (3.4-5.1); Sodium 140 mMol/L (136-145); Total Protein 6.4 gm/dL (5.7-8.2); eGFR > 60 See Note
[2024-08-30] MEDS: MONTELUKAST SODIUM 10 MG TABLET PO (08:08)
--- NOTE | 2024-08-30 08:13 | ESPR_ITS ---
<Statement entered by Alton Connell MD - 08/30/24 16:47> Patient was seen and examined at the bedside. Patient continues to have blood in the Hoang catheter and was complaining of pain during urination. Repeat H&H showed hemoglobin at 12. We increased dose of tamsulosin 0.8 mg at bedtime and discontinued lisinopril due to soft blood pressure. Added finasteride. Currently continuing bladder irrigation Q2 hourly until Hoang cath cleared. Family was updated. Will likely closely monitor for hypotension and drop in hemoglobin. All labs and orders were reviewed. I saw and examined the patient, and I agree with current management stated by Dr Arnie MD,PGY1. Plan of care was discussed with the attending physician and resident physician. Disclaimer: Despite multiple revisions, due to the dictation software being used, the document bellow may not be free of grammatical errors including phonetic/typographic errors. However, this does not deter from our commitment to providing health care in the patient's best interest in mind. Dr. Becki MD, PGY 2 Documentation for date of: 08/30/24 Subjective Subjective Interval history: Patient speaks Tagalog interaction facilitated by registered healthcare brewery worker. Patient was seen and examined at bedside this AM. No acute exents overnight. Patient tolerating diet, Has bright red hematuria and mentation is at baseline. Patient complains of pain while passing urine Urinary Catheter Flushes were increased to q 2 hrly and Flomax dose was increased to 0.8mg Finasteride was walso started Exam Vital Signs Temp Pulse Resp BP Pulse Ox O2 Del Method 97.6 F 66 18 111/54 L 97 Room Air 08/30/24 04:00 08/30/24 08:08 08/30/24 04:00 08/30/24 08:08 08/30/24 04:00 08/30/24 04:00 Narrative Exam Constitutional Alert, oriented x 3 and comfortable. Elderly male, cachectic, temporal wasting HEENT Vision grossly intact. Patent nares. Trachea midline Respiratory Chest normal on inspection and clear auscultation bilaterally Cardiovascular S1 and S2 audible, RRR. No murmurs carotid bruit. No gross JVD. Abdominal Soft and non tender to palpation in all quadrants. BS + Genitourinary No bladder tenderness, no flank pain. Normal to palpation. Red urine seen in urine bag Musculoskeletal Extremities tone within normal limits. No LE edema. Neurological CN II - XII grossly intact. Extremity motor and sensation grossly intact. Skin Warm, dry and intact. No apparent lesions. Psychiatric Patient has good affect, is cooperative Objective Labs 08/31/24 05:15 08/31/24 05:15 Labs: Laboratory Results - last 24 hr 08/29/24 08/30/24 15:01 04:19 WBC 6.1 RBC 3.73 L Hgb 13.4 L 11.6 L Hct 39.6 L 34.8 L MCV 93 MCH 31.1 MCHC 33.3 RDW Std Deviation 46.5 H Plt Count 240 Neut % (Auto) 57 Lymph % (Auto) 24 [place] % (Auto) 9 Eos % (Auto) 10 Baso % (Auto) 0 Neut # (Auto) 3.4 Lymph # (Auto) 1.4 [place] # (Auto) 0.6 Eos # (Auto) 0.6 H Baso # (Auto) 0.0 Immature Gran # (Auto) 0.01 H Absolute Nucleated RBC 0.00 Immature Gran % 0 Nucleated RBC % 0 Sodium 140 Potassium 3.4 D Chloride 103 Carbon Dioxide 29.6 Anion Gap 7 BUN 15 Creatinine 1.0 Estim Creat Clear Calc 40.1 L eGFR > 60 BUN/Creatinine Ratio 15 Glucose 104 Calculated Osmolality 280 Calcium 8.9 Corrected Calcium 8.9 Phosphorus 3.2 Magnesium 1.9 Total Bilirubin 1.1 AST 20 ALT 15 Alkaline Phosphatase 65 Total Protein 6.4 Albumin 4.1 Globulin 2.3 Albumin/Globulin Ratio 1.8 Quality Measures Quality Measures none Advance care planning discussed with:: other Assessment & Plan Assessment Current Active Medications: Generic Name Dose Route Start Last Admin Trade Name Freq PRN Reason Stop Dose Admin Acetaminophen 650 mg 08/29/24 04:26 Acetaminophen 325 Mg Tablet PO 09/28/24 04:25 Q6H PRN Pain 1-3 or Fever >100.3 Hydrocodone Bitart/Acetaminophen 1 tab 08/29/24 14:29 08/30/24 02:23 Hydrocodone/Apap 5/325 Tablet PO 09/03/24 14:28 1 tab Q6HR PRN Administration pain 4-7 Albuterol 2 puff 08/29/24 14:30 Albuterol Inh 8 Gm INH 09/28/24 14:29 Q4H PRN SHORTNESS OF BREATH Artificial Tears 1 drop 08/29/24 18:47 Artificial Tears 225 Drop/15 Ml Btl BOTH EYES 09/28/24 18:46 PRN PRN To Keep Eyes Moist and pain Atorvastatin Calcium 20 mg 08/29/24 21:00 08/29/24 20:19 Atorvastatin Calcium 20 Mg Tablet PO 09/28/24 20:59 20 mg HS MONALISA Administration Hydralazine HCl 10 mg 08/29/24 15:25 Hydralazine Inj 20 Mg/Ml Vial IV 09/28/24 15:24 Q4H PRN SBP > 180 AND HR < 100 Magnesium Sulfate 2 gm in 50 mls @ 25 mls/hr 08/30/24 08:07 Magnesium Sulfate Ivpb IV 08/30/24 10:06 X1 ONE Lisinopril 10 mg 08/29/24 09:00 08/30/24 08:08 Lisinopril 2.5 Mg Tablet PO 09/28/24 08:59 Not Given QDAY [facility]AL[facility] Montelukast Sodium 10 mg 08/30/24 09:00 08/30/24 08:08 Montelukast Sodium 10 Mg Tablet PO 09/29/24 08:59 10 mg DAILY MONALISA Administration Ondansetron HCl 4 mg 08/29/24 04:26 Ondansetron Inj 2 Mg/Ml Inj 2 Ml IV 09/28/24 04:25 Q6H PRN NAUSEA OR VOMITING Protocol Tamsulosin HCl 0.4 mg 08/29/24 21:00 08/29/24 20:19 Tamsulosin Hcl 0.4 Mg Capsule PO 09/28/24 20:59 0.4 mg HS MONALISA Administration Plan Patient is 89-year-old male with a past medical history significant for essential hypertension, hyperlipidemia, BPH. Presented to the ED with a chief complaint of abdominal pain and difficulty urinating for 5 days. Patient was admitted for small bowel obstruction. 1. Gross Hematuria, likely 2/2 trauma Patient developed hematuria from his Hoang catheter Most likely secondary to traumatic cateterization and Heparin Urine still bright red Plan: ? Increase irrigation to q2hrly with 50cc - Possible Urology consult if not resolving 2. BPH Patient not on any home medication Significant prostatomegaly seen on CT scan Still has pain and difficulty voiding Plan: ? Increased tamsulosin to 0.8mg po from 0.4 Mg p.o. at bedtime 3. Small bowel obstruction?resolved Patient presented with abdominal pain Abdomen/pelvis CT significant for multiple liver lesions, fluid distended small bowel loops in lower abdomen and pelvis, SBO pattern, significant prostatomegaly. A small portion of urinary bladder and right inguinal hernia. Small bowel series showed resolution of SBO Patient is now passing flatus and had a bowel movement in the ED 4. Essential hypertension 5. Hyperlipidemia Patient not on any antihypertensives at home. Atorvastatin 20 Mg p.o. is as home medication Plan: ? Held lisinopril 10 Mg p.o. daily in light of normotension and increasing flomax dose ? Continue atorvastatin 20 Mg p.o. daily 6. Asthma Patient's home medications Singulair, albuterol inhaler and Trelegy Plan: ? Resume home medication Singulair 10 Mg p.o. daily ? DuoNebs ? Albuterol inhaler 2 puffs as needed Health maintenance: Disposition: UCath flushes for hematuria. Possible Urology consult Diet: Cardiac Lines: pIVs GI Prophylaxis: None Thrombo Prophylaxis: SCDs Code status: FULL CODE Plan of care discussed with Attending Dr. Lovelace and PGY2 Dr. Becki Gaitan MD PGY 1 Attending Provider Attestation/Addendum I, Shey Lovelace, DO, attest that I was physically present for the walker portions of the service and evaluated the patient with the resident and I reviewed and discussed the case with the resident and agree with the resident's findings and plans of care as documented above Patient seen and evaluated this AM. He continues to have gross hematuria from hoang catheter. Will continue to manually irrigate. Hoang to leg bag was switched to regular hoang bag as tugging may also be causing bleeding as well. Continue to follow h/h
[2024-08-30] MEDS: POTASSIUM CHLORIDE 20 mEq TABCR 40 MEQ PO (08:25)
[2024-08-30] MEDS: Magnesium Sulfate 2 GM Ivpb 2 GM/50 ML BAG IV (08:25)
--- NOTE | 2024-08-30 13:08 | PC.SS ---
Initial assessment: This is 89 year old male admitted SBO. Patient appeared alert and oriented. Patient informs he lives at home with family. Patient's daughter, Maile Gilliam was identified as the patient's alternate medical surrogate decision maker. Patient describes to require some assistance with ADL's. Patient informs he has a wheelchair at home. Patient denies use of home oxygen. Patient's PCP is Dr. Rj Irizarry. The discharge plan was discussed, and the patient would like to return home once medically cleared. Patient's family to assist with transportation home. No needs identified at this time. management services technician to remain available to address further concerns. D/c plan: home Next of kin: daughter, Maile Gilliam
[2024-08-30] MEDS: FINASTERIDE 5 MG TABLET PO (13:15)
[2024-08-30 14:44] LABS: Hematocrit 37.4 % (41.0-53.0); Hemoglobin 12.7 g/dL (13.5-16.0)
[2024-08-30] MEDS: TAMSULOSIN HCL 0.4 MG CAPSULE 0.8 MG PO (20:22)
[2024-08-30] MEDS: MELATONIN 3 MG TABLET PO (20:23)
[2024-08-30] MEDS: ATORVASTATIN CALCIUM 20 MG TABLET PO (20:23)
[2024-08-31] VITALS (8 sets, daily range): BP systolic 96–168; BP diastolic 58–80; PULSE 64–87; RESP 16–96; TEMP 36.2–36.7; O2SAT 94–96
[2024-08-31 05:58] LABS: Basophils % (Auto) 0 % (0-2.5); Eosinophils # (Auto) 0.6 Thou/mm3 (0.0-0.5); Eosinophils % (Auto) 10 % (0-10); Hematocrit 33.9 % (41.0-53.0); Hemoglobin 11.4 g/dL (13.5-16.0); Immature Granulocytes % (Auto) 0 % (0-0); Immature Granulocytes Auto 0.01 Thou/mm3 (0.00-0.00); Lymphocytes # (Auto) 1.3 Thou/mm3 (1.0-4.8); Lymphocytes % (Auto) 21 % (10-50); Mean Corpuscular HGB Conc 33.6 g/dl (31.0-37.0); Mean Corpuscular Hemoglobin 31.1 pg (25.0-35.0); Mean Corpuscular Volume 92 fL (80-100); Monocytes # (Auto) 0.6 Thou/mm3 (0.0-0.8); Monocytes % (Auto) 10 % (0-12); Neutrophils # (Auto) 3.6 Thou/mm3 (1.8-7.7); Neutrophils % (Auto) 59 % (37-80); Nucleated Red Blood Cell % 0 /100 WBC (0); Platelet Count 242 Thou/mm3 (140-440); Red Blood Count 3.67 Miln/mm3 (4.50-5.90); White Blood Count 6.1 Thou/mm3 (3.8-10.6)
[2024-08-31 06:30] LABS: Alanine Aminotransferase 14 U/L (10-49); Albumin, Serum 4.1 gm/dL (3.4-4.8); Albumin/Globulin Ratio 1.8 (1.2-2.2); Alkaline Phosphatase 63 U/L (46-116); Anion Gap 8 (7-16); Aspartate Amino Transferase 18 U/L (0-34); BUN/Creatinine Ratio 11 Ratio (12-20); Bilirubin,Total 0.8 mg/dL (0.3-1.2); Blood Urea Nitrogen 9 mg/dL (9-23); Calcium 8.7 mg/dL (8.3-10.6); Calcium (Corrected) 8.7 mg/dL (8.5-10.1); Carbon Dioxide 27.7 mMol/L (20.0-31.0); Chloride 102 mMol/L (98-107); Creatinine (Component) 0.8 mg/dL (0.6-1.3); Estimated Creatinine Clearance 50.1 mL/min (>60); Globulin 2.3 gm/dL (2.3-3.5); Glucose 97 mg/dL (74-106); Magnesium 2.2 mg/dL (1.6-2.6); Osmolality,Calculated 274 (275-295); Phosphorous 3.1 mg/dL (2.4-5.1); Potassium 3.9 mMol/L (3.4-5.1); Sodium 138 mMol/L (136-145); Total Protein 6.4 gm/dL (5.7-8.2); eGFR > 60 See Note
[2024-08-31] MEDS: FINASTERIDE 5 MG TABLET PO (09:38)
[2024-08-31] MEDS: MONTELUKAST SODIUM 10 MG TABLET PO (09:39)
[2024-08-31] MEDS: HYDROcodone/APAP 5/325 TABLET 1 TAB PO ×2 (09:42→17:40)
[2024-08-31] MEDS: Artificial Tears 225 DROP/15 ML BTL BOTH EYES (10:36)
--- NOTE | 2024-08-31 10:53 | ESPR_ITS ---
<Statement entered by Alton Connell MD - 08/31/24 15:27> Patient was seen and examined at the bedside. Patient continues to have blood in the Edwards catheter and was complaining of pain in the lower pelvis during urination. Hemoglobin remained stable. Blood pressure is currently stable. We are continuing tamsulosin and finasteride and bladder irrigation Q2 hourly and consult urologist, Dr. Davis for further recommendations. Patient was given simethicone for bloating/gas. He had a bowel movement yesterday. All labs and orders were reviewed. I saw and examined the patient, and I agree with current management stated by Dr Arnie MD,PGY1. Plan of care was discussed with the attending physician and resident physician. Disclaimer: Despite multiple revisions, due to the dictation software being used, the document bellow may not be free of grammatical errors including phonetic/typographic errors. However, this does not deter from our commitment to providing health care in the patient's best interest in mind. Dr. Becki MD, PGY 2 Documentation for date of: 08/31/24 Subjective Subjective Interval history: Patient speaks Tagalog interaction facilitated by registered healthcare park interpreter. Patient was seen and examined at bedside this AM. Overnight patient had insomnia and was prescribed melatonin by night team Patient tolerating diet, Has bright light pink hematuria and mentation is at baseline. Patient complains of pain while passing urine Patient has urinary catheter flushes every 2 hourly with 50 cc normal saline Patient was started on hyoscyamine 0.125 Mg p.o. every 4 hourly for spasmodic bladder pain Urology, Dr. Davis was consulted and is closely following the case. Appreciate recommendations. DaughterMaile was updated on the above and current management plan. Exam Vital Signs Temp Pulse Resp BP Pulse Ox O2 Del Method 97.2 F 70 18 149/80 H 95 Room Air 08/31/24 08:00 08/31/24 08:00 08/31/24 08:00 08/31/24 08:00 08/31/24 08:00 08/31/24 08:00 Narrative Exam Constitutional Alert, oriented x 3 and comfortable. Elderly male, cachectic, temporal wasting HEENT Vision grossly intact. Patent nares. Trachea midline Respiratory Chest normal on inspection and clear auscultation bilaterally Cardiovascular S1 and S2 audible, RRR. No murmurs carotid bruit. No gross JVD. Abdominal Soft and non tender to palpation in all quadrants. BS + Genitourinary No bladder tenderness, no flank pain. Normal to palpation. Light pink urine seen in urine bag Musculoskeletal Extremities tone within normal limits. No LE edema. Neurological CN II - XII grossly intact. Extremity motor and sensation grossly intact. Skin Warm, dry and intact. No apparent lesions. Psychiatric Patient has good affect, is cooperative Objective Labs 08/31/24 05:15 08/31/24 05:15 Labs: Laboratory Results - last 24 hr 08/30/24 08/31/24 14:33 05:15 WBC 6.1 RBC 3.67 L Hgb 12.7 L 11.4 L Hct 37.4 L 33.9 L MCV 92 MCH 31.1 MCHC 33.6 RDW Std Deviation 46.0 H Plt Count 242 Neut % (Auto) 59 Lymph % (Auto) 21 Levy % (Auto) 10 Eos % (Auto) 10 Baso % (Auto) 0 Neut # (Auto) 3.6 Lymph # (Auto) 1.3 Levy # (Auto) 0.6 Eos # (Auto) 0.6 H Baso # (Auto) 0.0 Immature Gran # (Auto) 0.01 H Absolute Nucleated RBC 0.00 Immature Gran % 0 Nucleated RBC % 0 Sodium 138 Potassium 3.9 D Chloride 102 Carbon Dioxide 27.7 Anion Gap 8 BUN 9 Creatinine 0.8 Estim Creat Clear Calc 50.1 L eGFR > 60 BUN/Creatinine Ratio 11 L Glucose 97 Calculated Osmolality 274 L Calcium 8.7 Corrected Calcium 8.7 Phosphorus 3.1 Magnesium 2.2 Total Bilirubin 0.8 AST 18 ALT 14 Alkaline Phosphatase 63 Total Protein 6.4 Albumin 4.1 Globulin 2.3 Albumin/Globulin Ratio 1.8 Quality Measures Quality Measures none Advance care planning discussed with:: patient Assessment & Plan Assessment Current Active Medications: Generic Name Dose Route Start Last Admin Trade Name Freq PRN Reason Stop Dose Admin Acetaminophen 650 mg 08/29/24 04:26 Acetaminophen 325 Mg Tablet PO 09/28/24 04:25 Q6H PRN Pain 1-3 or Fever >100.3 Hydrocodone Bitart/Acetaminophen 1 tab 08/29/24 14:29 08/31/24 09:42 Hydrocodone/Apap 5/325 Tablet PO 12/21/24 14:28 1 tab Q6HR PRN Administration pain 4-7 Albuterol 2 puff 08/29/24 14:30 Albuterol Inh 8 Gm INH 09/28/24 14:29 Q4H PRN SHORTNESS OF BREATH Artificial Tears 1 drop 08/29/24 18:47 08/31/24 10:36 Artificial Tears 225 Drop/15 Ml Btl BOTH EYES 09/28/24 18:46 1 drop PRN PRN Administration To Keep Eyes Moist and pain Atorvastatin Calcium 20 mg 08/29/24 21:00 08/30/24 20:23 Atorvastatin Calcium 20 Mg Tablet PO 09/28/24 20:59 20 mg HS MONALISA Administration Finasteride 5 mg 08/30/24 13:30 08/31/24 09:38 Finasteride 5 Mg Tablet PO 09/29/24 13:29 5 mg QDAY MONALISA Administration Hydralazine HCl 10 mg 08/29/24 15:25 Hydralazine Inj 20 Mg/Ml Vial IV 09/28/24 15:24 Q4H PRN SBP > 180 AND HR < 100 Hyoscyamine 0.125 mg 08/31/24 10:07 Hyoscyamine Sulf 0.125 Mg Tab.Subl PO 09/30/24 10:06 Q4HR PRN Dysuria or suprapubic pain Melatonin 3 mg 08/30/24 19:40 08/30/24 20:23 Melatonin 3 Mg Tablet PO 09/29/24 19:39 3 mg HS MONALISA Administration Montelukast Sodium 10 mg 08/30/24 09:00 08/31/24 09:39 Montelukast Sodium 10 Mg Tablet PO 09/29/24 08:59 10 mg DAILY MONALISA Administration Ondansetron HCl 4 mg 08/29/24 04:26 Ondansetron Inj 2 Mg/Ml Inj 2 Ml IV 09/28/24 04:25 Q6H PRN NAUSEA OR VOMITING Protocol Simethicone 80 mg 08/31/24 10:29 Simethicone 80 Mg Chew PO 09/30/24 10:28 QID PRN GAS Tamsulosin HCl 0.8 mg 08/30/24 21:00 08/30/24 20:22 Tamsulosin Hcl 0.4 Mg Capsule PO 09/29/24 20:59 0.8 mg HS MONALISA Administration Plan Patient is 89-year-old male with a past medical history significant for essential hypertension, hyperlipidemia, BPH. Presented to the ED with a chief complaint of abdominal pain and difficulty urinating for 5 days. Patient was admitted for small bowel obstruction. 1. Gross Hematuria, likely 2/2 trauma 2. Dysuria Patient developed hematuria from his Edwards catheter Most likely secondary to traumatic cateterization and Heparin Has bright light pink hematuria and Patient complains of pain while passing urine Patient has urinary catheter flushes every 2 hourly with 50 cc normal saline Patient was started on hyoscyamine 0.125 Mg p.o. every 4 hourly for spasmodic bladder pain Urology, Dr. Davis was consulted for further recommendations DaughterMaile was updated on the above and current management plan. Plan: ? Continue bladder irrigation q2hrly with 50cc flushes - Urology, Dr. Davis was consulted. Appreciate recommendations 3. BPH Patient not on any home medication Significant prostatomegaly seen on CT scan Still has pain and difficulty voiding Plan: - Continue tamsulosin to 0.8mg po at bedtime - Continue Finasteride 5mg po daily 4. Small bowel obstruction?resolved Patient presented with abdominal pain Abdomen/pelvis CT significant for multiple liver lesions, fluid distended small bowel loops in lower abdomen and pelvis, SBO pattern, significant prostatomegaly. A small portion of urinary bladder and right inguinal hernia. Small bowel series showed resolution of SBO Patient is now passing flatus and had a bowel movement in the ED 5. Essential hypertension 6. Hyperlipidemia Patient not on any antihypertensives at home. Atorvastatin 20 Mg p.o. is as home medication Plan: ? Held lisinopril 10 Mg p.o. daily in light of normotension and increasing flomax dose ? Continue atorvastatin 20 Mg p.o. daily 7. Asthma Patient's home medications Singulair, albuterol inhaler and Trelegy Plan: ? Continue home medication Singulair 10 Mg p.o. daily ? Albuterol inhaler 2 puffs as needed Health maintenance: Disposition: UCath flushes for hematuria. Urology consult Diet: Cardiac Lines: pIVs GI Prophylaxis: None Thrombo Prophylaxis: SCDs Code status: FULL CODE Plan of care discussed with Attending Dr. Lovelace and PGY2 Dr. Becki Gaitan MD PGY 1 Attending Provider Attestation/Addendum I, Shey Lovelace DO, attest that I was physically present for the walker portions of the service and evaluated the patient with the resident and I reviewed and discussed the case with the resident and agree with the resident's findings and plans of care as documented above Patient seen and evaluated this AM. He states that he has some pain with urination. Urine appears to be light red, but was recently emptied. Will consult urology due to persistent pain and clotting. WIll f/u with urology recommendations. Abdominal distension improved. Afebrile.
[2024-08-31] MEDS: SIMETHICONE 80 MG CHEW PO (11:40)
[2024-08-31] MEDS: HYOSCYAMINE SULF 0.125 MG TAB.SUBL PO (12:12)
--- NOTE | 2024-08-31 14:41 | PC.SS ---
Rounding: Pending Urology consult
--- NOTE | 2024-08-31 14:58 | PC.NURSE ---
DR. Davis on the bedside examine the pt. , spoke with the daughter on the bedside explain the current problem and the follow up treatment.
--- NOTE | 2024-08-31 15:00 | PC.NURSE ---
Pt. Urine turning to light pink, at this moment pt. is not complaining of any pain, will continue moniter.
--- NOTE | 2024-08-31 18:28 | PC.NURSE ---
been been notified about pt. bp 152/68 . Per its ok now. We will keep monitring . No new orders received.
[2024-08-31] MEDS: TAMSULOSIN HCL 0.4 MG CAPSULE 0.8 MG PO (20:07)
[2024-08-31] MEDS: ATORVASTATIN CALCIUM 20 MG TABLET PO (20:07)
[2024-08-31] MEDS: MELATONIN 3 MG TABLET PO (20:07)
[2024-09-01] VITALS: BP 150/87; PULSE 81; RESP 16; TEMP 36.6; O2SAT 96
[2024-09-01 04:00] VITALS: BP 142/67; PULSE 90; RESP 17; TEMP 37.1; O2SAT 94
[2024-09-01 05:24] LABS: Basophils % (Auto) 0 % (0-2.5); Eosinophils # (Auto) 0.6 Thou/mm3 (0.0-0.5); Eosinophils % (Auto) 9 % (0-10); Hematocrit 35.1 % (41.0-53.0); Hemoglobin 11.9 g/dL (13.5-16.0); Immature Granulocytes % (Auto) 0 % (0-0); Immature Granulocytes Auto 0.02 Thou/mm3 (0.00-0.00); Lymphocytes # (Auto) 1.5 Thou/mm3 (1.0-4.8); Lymphocytes % (Auto) 24 % (10-50); Mean Corpuscular HGB Conc 33.9 g/dl (31.0-37.0); Mean Corpuscular Hemoglobin 31.5 pg (25.0-35.0); Mean Corpuscular Volume 93 fL (80-100); Monocytes # (Auto) 0.7 Thou/mm3 (0.0-0.8); Monocytes % (Auto) 11 % (0-12); Neutrophils # (Auto) 3.5 Thou/mm3 (1.8-7.7); Neutrophils % (Auto) 55 % (37-80); Nucleated Red Blood Cell % 0 /100 WBC (0); Platelet Count 238 Thou/mm3 (140-440); RDW Standard Deviation 45.1 fL (35.1-43.9); Red Blood Count 3.78 Miln/mm3 (4.50-5.90); White Blood Count 6.4 Thou/mm3 (3.8-10.6)
[2024-09-01 06:45] LABS: Alanine Aminotransferase 24 U/L (10-49); Albumin, Serum 4.2 gm/dL (3.4-4.8); Albumin/Globulin Ratio 1.6 (1.2-2.2); Alkaline Phosphatase 68 U/L (46-116); Anion Gap 11 (7-16); Aspartate Amino Transferase 37 U/L (0-34); BUN/Creatinine Ratio 13 Ratio (12-20); Bilirubin,Total 0.6 mg/dL (0.3-1.2); Blood Urea Nitrogen 10 mg/dL (9-23); Calcium 9.4 mg/dL (8.3-10.6); Calcium (Corrected) 9.4 mg/dL (8.5-10.1); Carbon Dioxide 25.7 mMol/L (20.0-31.0); Chloride 102 mMol/L (98-107); Creatinine (Component) 0.8 mg/dL (0.6-1.3); Estimated Creatinine Clearance 50.1 mL/min (>60); Globulin 2.6 gm/dL (2.3-3.5); Glucose 99 mg/dL (74-106); Magnesium 2.2 mg/dL (1.6-2.6); Osmolality,Calculated 276 (275-295); Phosphorous 3.5 mg/dL (2.4-5.1); Potassium 4.2 mMol/L (3.4-5.1); Sodium 139 mMol/L (136-145); Total Protein 6.8 gm/dL (5.7-8.2); eGFR > 60 See Note
[2024-09-01 07:37] VITALS: BP 139/90; BP 142/67; PULSE 88; RESP 17; TEMP 36.3; O2SAT 94
--- NOTE | 2024-09-01 08:05 | PC.CM ---
Addendum entered by Vikram Klein RN 09/01/24 16:48: [facility] accepted the pt. Booked [facility] Pending start of care date. Addendum entered by Vikram Klein RN 09/01/24 16:26: Per SS notes, pt preferred HH agency is [facility]. HH referral sent on [facility]. Awaiting responses. Pending start of care date. Original Note: Entered pt on [facility] for HH referral.
[2024-09-01] MEDS: FINASTERIDE 5 MG TABLET PO (08:09)
[2024-09-01] MEDS: Artificial Tears 225 DROP/15 ML BTL BOTH EYES (08:09)
[2024-09-01] MEDS: MONTELUKAST SODIUM 10 MG TABLET PO (08:10)
[2024-09-01] MEDS: HYOSCYAMINE SULF 0.125 MG TAB.SUBL PO (08:10)
[2024-09-01] MEDS: HYDROcodone/APAP 5/325 TABLET 1 TAB PO (08:10)
--- NOTE | 2024-09-01 09:16 | ESDS_ITS ---
<Statement entered by Shey Lovelace DO - 09/02/24 08:28> I, Shey Lovelace DO, attest that I was physically present for the walker portions of the service and evaluated the patient with the resident and I reviewed and discussed the case with the resident and agree with the resident's findings and plans of care as documented above <Statement entered by Alton Connell MD - 09/01/24 10:33> I saw and examined the patient, and I agree with current management stated by Dr Arnie MD,PGY1. Plan of care was discussed with the attending physician and resident physician. Disclaimer: Despite multiple revisions, due to the dictation software being used, the document bellow may not be free of grammatical errors including phonetic/typographic errors. However, this does not deter from our commitment to providing health care in the patient's best interest in mind. Dr. Becki MD, PGY 2 Planned Discharge Date 09/01/24 DS: Providers Provider Date of admission: 08/30/24 14:10 Primary care physician: Rj Irizarry MD Admitting Provider: José Miguel Lopez MD Attending Provider on Admission: Shey Lovelace DO Consults: 08/31/24 11:35 Consult to Urology Routine Comment: Hematuria, BPH Consulting Provider: Cherise Davis Attending Provider on DC: Shey Lovelace DO Discharging Provider: Rolando Gaitan MD DS: Diagnosis Problem List Completed Was Problem List Reviewed/Reconciled?: Yes Hospital Course Hospital Course Hospital course: Patient is 89-year-old male with a past medical history significant for essential hypertension, hyperlipidemia, BPH. Presented to the ED with a chief complaint of abdominal pain and difficulty urinating for 5 days. Patient was admitted for small bowel obstruction. With regards resolved bowel obstruction it spontaneously resolved while patient was in the ED he had a bowel movement. Subsequent small bowel series was also positive for resolution of small bowel obstruction. Initial abdomen/pelvis CT was significant for multiple liver lesions, fluid distended small bowel loops in lower abdomen and pelvis, SBO pattern, significant prostatomegaly. Small portion of urinary bladder and right inguinal hernia. With regards to his hematuria patient was treated with bladder irrigation every 2 hourly after which his hematuria improved over the course of hospitalization. Urology, Dr. Davis was also consulted who recommended to discontinue irrigation and encourage p.o. liquid intake. He also recommended to keep the urinary catheter for 5 days after which to attempt bladder retraining and subsequent discontinuation of the urinary catheter. He will see him in his office outpatient for his BPH. For his BPH patient was started on Flomax 0.8 mg p.o. at night as well as finasteride 5 Mg p.o. daily. With regards to his hypertension patient's lisinopril 10 Mg p.o. daily was held in light of normotension during his hospital. Also Flomax was added to his medications so lisinopril was discontinued to avoid hypotension. All patient's labs have now returned to baseline. Patient is now clinically stable and fit for discharge to home with home health. Discharge diagnoses: 1. Hematuria?resolving 2. Dysuria?resolving 3. BPH 4. Small bowel obstruction?resolved 5. Essential hypertension 6. Hyperlipidemia 7. Asthma Discharge plan: -You have been started on a medication Flomax for your enlarged prostate to help you pass urine. Take 2 tablets at night. These tablets may cause you to feel dizzy, do not get up quickly and monitor your blood pressure to ensure it does not go too low. ? You have also been started on a medication finasteride to help shrink your prostate. Take 1 tablet 1 time a day. ? Over the next 5 days your urinary catheter will be removed with home health. ? Your urine may continue to be pink for a few days until it clears up, continue to drink lots of water. ? Continue the rest of your home medication as before. ? Please follow-up in urology clinic within 1-2 weeks of discharge. ? Please follow-up with your primary doctor within 1 week of discharge. ? If you experience any new, worsening or persistent symptoms either call your primary doctor, dial 911 or present to the emergency department. We are grateful to be able to participate in Mr. Roman's care. We wish him the best. Plan of care discussed with Attending Dr. Lovelace and PGY2 Dr. Becki Gaitan MD PGY 1 Time Spent with Patient Time attestation: Total time spent providing and/or coordinating discharge services: Time spent: Greater than 30 minutes (37) Home Health Home Health Referral Orders: 09/01/24 07:43 Home Health Referral Routine Reason For Exam: hematuria Home-Bound The patient must either because of illness or injury, need the aid of supportive devices such as crutches, canes, wheelchairs, and walkers; the use of special transportation; or the assistance of another person in order to leave their place of residence; OR have a condition such that leaving his or her home is medically contraindicated. In addition, the patient also meets the following criteria: patient is normally unable to leave the home and leaving home requires considerable taxing effort. Addendum to Home Health Certification Practitioner's Certification: I certify that the patient has been under my care in the hospital and the care of attending physician (see below). We had a [id number]-[id number] encounter on (see date below). My clinical findings indicate that the patient is home bound per the above criteria and the Home Health Services noted in these orders are medically necessary. The primary reason for the [id number] encounter is related to the fact that the patient requires home health services. Date Certifying [id number] Physician Encounter: 08/29/24 Physician's Name who will Assume Oversight for Services: Rj Irizarry Physician's Phone No.who will Assume Oversight for Service: BIOSTATISTICS PROFESSOR - Community Resources: No PT to Evaluate: No PT to evaluate and provide a treatmnet plan to increase patient's mobility and strength. Wound Care: No IV Therapy: No RN Safety Evaluation: Yes RN to evaluate and create a plan of care that will produce positive outcomes. Palliative Treatment: No Palliative treatment and evaluate the need for hospice. Home Health Aide - Personal Care: Yes Home Health Aide to assist with any ADL's. Exam Vital Signs Temp Pulse Resp BP Pulse Ox O2 Del Method 97.3 F 88 17 142/67 H 94 L Room Air 09/01/24 07:37 09/01/24 07:37 09/01/24 07:37 09/01/24 07:37 09/01/24 07:37 09/01/24 07:37 Narrative Exam Constitutional Alert, oriented x 3 and comfortable. Elderly male, cachectic, temporal wasting HEENT Vision grossly intact. Patent nares. Trachea midline Respiratory Chest normal on inspection and clear auscultation bilaterally Cardiovascular S1 and S2 audible, RRR. No murmurs carotid bruit. No gross JVD. Abdominal Soft and non tender to palpation in all quadrants. BS + Genitourinary No bladder tenderness, no flank pain. Normal to palpationOrange urine seen in urine bag Musculoskeletal Extremities tone within normal limits. No LE edema. Neurological CN II - XII grossly intact. Extremity motor and sensation grossly intact. Skin Warm, dry and intact. No apparent lesions. Psychiatric Patient has good affect, is cooperative Discharge Plan Plan Patient Disposition: Home w/HOME HEALTH Patient condition on transfer: Stable Care Plan Goals: -You have been started on a medication Flomax for your enlarged prostate to help you pass urine. Take 2 tablets at night. These tablets may cause you to feel dizzy, do not get up quickly and monitor your blood pressure to ensure it does not go too low. ? You have also been started on a medication finasteride to help shrink your prostate. Take 1 tablet 1 time a day. ? Over the next 5 days your urinary catheter will be removed with home health. ? Your urine may continue to be pink for a few days until it clears up, continue to drink lots of water. ? Continue the rest of your home medication as before. ? Please follow-up in urology clinic within 1-2 weeks of discharge. ? Please follow-up with your primary doctor within 1 week of discharge. ? If you experience any new, worsening or persistent symptoms either call your primary doctor, dial 911 or present to the emergency department. Prescriptions/Referrals Prescriptions/Med Rec: New finasteride 5 mg Tablet 5 mg PO QDAY 30 Days Qty: 30 0RF artificial tear([id number]) 0.1-0.3-0.2 % Drops 1 drp Both eyes PRN PRN (Reason: To Keep Eyes Moist and pain) 14 Days Qty: 15 0RF simethicone 80 mg Tablet,Chewable 80 mg PO QID PRN (Reason: Gas) 14 Days Qty: 14 0RF tamsulosin 0.4 mg Capsule 0.8 mg PO HS 30 Days Qty: 60 0RF Continued albuterol sulfate 90 mcg/actuation HFA aerosol inhaler 2 puff INHALATION Q4H PRN (Reason: SOB) Trelegy Ellipta 100-62.5-25 mcg blister with device 1 inh INHALATION DAILY Patient Comments: INHALE 1 PUFFS BY MOUTH EVERY DAY FOR COPD GARGLE WITH WATER AFTER EACH USE atorvastatin 20 mg tablet 20 mg PO HS Patient Comments: TAKE 1 TABLET (20 MG) BY ORAL ROUTE ONCE NIGHTLY FOR HIGH CHOLESTEROL allopurinol 100 mg tablet 200 mg PO DAILY Patient Comments: TAKE 2 TABLET (200 MG) BY ORAL ROUTE DAILY FOR GOUT. montelukast 10 mg tablet 10 mg PO DAILY Patient Comments: TAKE 1 TABLET (10 MG) BY ORAL ROUTE ONCE DAILY IN THE EVENING FOR PERSISTENT ALLERGIES Referrals: Cherise Davis MD [Physician] - Rj Irizarry MD [Primary Care Provider] - Patient/Caregiver Discharge Instructions Discharge Activity: activity as tolerated Print Language: Sami Stand Alone Forms: [employer] Award Info., Patient Portal Info Letter, Work/Release Restrictions Discharge Order Discharge Orders: Discharge (Routine); Ordered 09/01/24 Ordered By: Alton Connell Quality Discharge Quality Measures VTE prophylaxis
[2024-09-01 11:59] VITALS: BP 130/70; PULSE 82; RESP 17; TEMP 36.3; O2SAT 94
--- NOTE | 2024-09-01 12:32 | PC.SS ---
SS update: plan is to d/c the patient home with home health. [facility] agency preferred per daughter, Maile. Maile informs she can assist with transportation today.
--- NOTE | 2024-09-01 12:49 | PC.NURSE ---
pt. has discharge orders, per pt. family is coming to pick him up at 3. And requested to give discharge instruction to the family.
[2024-09-01 13:38] VITALS: PULSE 70; RESP 18; RESP 20; RESP 95; O2SAT 95
--- NOTE | 2024-09-01 15:51 | PC.NURSE ---
Daughter been notified that urologist office been trying to get a hold of the family to schedule an appointment and updated to call DR. Davis to schedule the appointment for the Pt. the phone number has been provided.
--- NOTE | 2024-09-02 15:37 | ESCONSULT_ITS ---
RE: MAXIMO HENDRIX : 1935 DATE OF CONSULTATION: 08/31/2024 CHIEF COMPLAINT: 1. BPH with urinary obstruction and LUTS. 2. Gross hematuria. 3. Giant prostatomegaly. HISTORY OF PRESENT ILLNESS: This is an 89-year-old gentleman. This patient has established diagnoses of: 1. Hypertension. 2. Hyperlipidemia. 3. History of urinary tract infection. This is an 89-year-old gentleman. This patient is a poor historian. His daughter is present at his bedside. Denies any history of prostatic surgery before. He does say that for the last couple of weeks, he had difficulty in urinating with a weak stream and hesitancy for the same duration. Denies any such episode in the past. He has been otherwise very healthy. He is not taking any anticoagulants. He does not suffer from any bleeding disease. Denies any history of smoking. Past medical history, family history, review of systems, personal history, please refer to patient's history form dated 08/29/2024, it is in HPI, in EMR. NARRATIVE REVIEW OF SYSTEMS: GENERAL: Denies fever, chills or diaphoresis. HEENT: Denies headache or visual or hearing changes. Nasal discharge. NEUROLOGIC: Denies unusual weakness. CARDIOVASCULAR: Denies chest pain or palpitation. GASTROINTESTINAL: Denies nausea or vomiting and he has had blood per rectum. GENITOURINARY: Denies any burning, itching or pain. He had difficulty in urinating. PSYCHIATRIC: Cooperative, pleasant mood and affect. This patient was seen by me twice, one was when his daughter was present and I came back after I had reviewed the CAT scan. PHYSICAL EXAMINATION: General condition is satisfactory. Vital signs are stable. They are in HPI, in EMR. He had placement of Edwards catheter and he had gross hematuria. Urine is clearing. VARIOUS LABORATORIES: His serum sodium is 142, potassium 4.0, BUN is 17, and creatinine 1.0. Urine is light colored. IMPRESSION: 1. Benign prostatic hypertrophy with urinary obstruction with enlarged prostate gland. 2. Gross hematuria. Urine is clearing. COMORBID CONDITIONS: 1. Hypertension. 2. Hyperlipidemia. RECOMMENDATIONS: 1. Tamsulosin 0.4 mg p.o. daily. 2. Finasteride. 3. Trial of voiding in another 3 days. Because he has a decompensated bladder, it needs time to recompensate. The patient is recommended to have a followup appointment with me in urology office. He is going to have a urine check again and he may need cystoscopic examination. All above issues were discussed with the nurse in the room with me and he will be given appointment for followup visit. DT: 16:36:34 TT: 21:10:00 Ref: [id number] - TID: [id number]
--- NOTE | 2024-09-05 16:27 | PC.CM ---
Called [facility], spoke to Shey. Start of care is 09/06/24.
== END 2024-09-01 15:56 | disposition home health service (06) | DRG 389 ==
LOC: SERX 23:58 → SERHOLD 08-29 07:07 → S3SX 08-29 18:17
PROVIDERS: Student in an Organized Health Care Education/Training Program; Admitting Provider Internal Medicine; Emergency Provider Emergency Medicine; PCP Family Medicine; Visit Provider Internal Medicine
DX: K56.609 Unspecified intestinal obstruction, unspecified as to partial versus complete obstruction (principal); N13.8 Other obstructive and reflux uropathy; R64 Cachexia; T83.83XA Hemorrhage due to genitourinary prosthetic devices, implants and grafts, initial encounter; E78.5 Hyperlipidemia, unspecified; N40.1 Benign prostatic hyperplasia with lower urinary tract symptoms; I10 Essential (primary) hypertension; J45.909 Unspecified asthma, uncomplicated; K40.90 Unilateral inguinal hernia, without obstruction or gangrene, not specified as recurrent; R39.11 Hesitancy of micturition; G47.00 Insomnia, unspecified; R31.0 Gross hematuria; R39.12 Poor urinary stream; K76.9 Liver disease, unspecified; Z87.440 Personal history of urinary (tract) infections; Z79.899 Other long term (current) drug therapy; Z79.51 Long term (current) use of inhaled steroids; Z68.20 Body mass index [BMI] 20.0-20.9, adult; Y73.2 Prosthetic and other implants, materials and accessory gastroenterology and urology devices associated with adverse incidents; Y92.230 Patient room in hospital as the place of occurrence of the external cause; Y84.6 Urinary catheterization as the cause of abnormal reaction of the patient, or of later complication, without mention of misadventure at the time of the procedure
CPT/HCPCS: 36415; 74018; 74176; 74250; 80053; 80061; 81001; 83690; 83735; 84100; 84443; 85014; 85018; 85025; 87086; 94664; 96372; 99285; G0378; J1643; J1885; J3475; A9270; J1644

== ENCOUNTER 2024-09-11 12:18 | Emergency (ER) | payer MEDICARE, MEDICAID, SELFPAY ==
[2024-09-11 12:19] VITALS: BMI 20.2
[2024-09-11 13:48] VITALS: BP 140/82; PULSE 75; RESP 18; TEMP 36.6; O2SAT 97
--- NOTE | 2024-09-11 14:08 | EDNOTE_ITS ---
ED Male Genitalurinary RME/HPI General Chief complaint: General Adult/Misc Complain Stated complaint: URINARY CATHETER REMOVAL Time Seen by Provider: 09/11/24 14:02 Source: patient Arrival date/time: 09/11/24 12:18 89-year-old male presents emergency department requesting to have Edwards removed there was a post removed yesterday by [employer] [facility]. Patient requesting to have urinalysis to rule out infection. Mode of arrival: ambulatory Limitations: no limitations Related Data Home Medications ?Medication ?Instructions ?Recorded ?Confirmed albuterol sulfate 90 mcg/actuation 2 puff inhalation Q4H PRN SOB 09/11/21 08/29/24 aerosol inhaler allopurinol 100 mg tablet 200 mg PO DAILY 08/29/24 08/29/24 atorvastatin 20 mg tablet 20 mg PO HS 08/29/24 08/29/24 fluticasone fur. 100 mcg-umeclid 1 inh inhalation DAILY 08/29/24 08/29/24 62.5 mcg-vilant 25 mcg inhalat.powder (Trelegy Ellipta) montelukast 10 mg tablet 10 mg PO DAILY 08/29/24 08/29/24 Previous Rx's ?Medication ?Instructions ?Recorded finasteride 5 mg tablet 5 mg PO QDAY 30 days #30 tabs 08/31/24 artificial 1 drp Both eyes PRN PRN To Keep 09/01/24 tears([id number]) Eyes Moist and pain 14 days #15 mL 0.1 %-0.3 %-0.2 % eye drops simethicone 80 mg chewable tablet 80 mg PO QID PRN Gas 14 days #14 09/01/24 tabs tamsulosin 0.4 mg capsule 0.8 mg (2 x 0.4 mg) PO HS 30 days 09/01/24 #60 caps Allergies Allergy/AdvReac Type Severity Reaction Status Date / Time No Known Allergies Allergy Verified 09/11/24 12:21 Review of Systems Review of Systems Systems Reviewed: All systems reviewed, normal except as documented Constitutional Constitutional: Reports system reviewed and no additional complaints, except as documented, Denies body ache(s), Denies chills and Denies fever(s) Eyes Eyes: Reports system reviewed and no additional complaints, except as documented and Denies change in vision ENT Ears, Nose, Mouth, and Throat: Reports system reviewed and no additional complaints, except as documented, Denies disequilibrium, Denies dizziness, Denies sore throat and Denies vertigo Cardiovascular Cardiovascular: Reports system reviewed and no additional complaints, except as documented, Denies chest pain and Denies dyspnea Respiratory Respiratory: Reports system reviewed and no additional complaints, except as documented, Denies chest congestion, Denies cough and Denies dyspnea Gastrointestinal Gastrointestinal: Reports system reviewed and no additional complaints, except as documented, Denies abdominal pain, Denies nausea and Denies vomiting Musculoskeletal Musculoskeletal: Reports system reviewed and no additional complaints, except as documented, Denies abnormal gait and Denies arthralgias Integumentary/Breasts Skin/Breast: Reports system reviewed and no additional complaints, except as documented, Denies erythema, Denies rash and Denies wounds Neurologic Neurologic: Reports system reviewed and no additional complaints, except as documented, Denies abnormal gait, Denies disequilibrium, Denies dizziness and Denies vertigo Past Medical History Past Medical History CARDIAC: Positive Cardiac Disorders; Negative Congestive Heart Failure RESPIRATORY: Positive Chronic Obstructive Pulmonary Disease (COPD); Negative Asthma GENITOURINARY: Negative Renal Disease ENDOCRINE: Negative Diabetes Mellitus Type 1 or Diabetes Mellitus Type 2 HEMATOLOGIC: Negative Sickle Cell Disease Social History SMOKING STATUS: Never smoker ED Exam General Limitations: Present no limitations General appearance: Present alert and in no apparent distress Head Head exam: Present atraumatic Eye Eye exam: Present normal appearance, PERRL and EOMI ENT ENT exam: Present normal exam, normal oropharynx and mucous membranes moist Neck Neck exam: Present normal inspection, full ROM and trachea midline Chest Chest inspection: Present normal inspection and symmetric chest wall rise Respiratory Respiratory exam: Present normal lung sounds bilaterally Cardiovascular Cardiovascular exam: Present regular rate, normal rhythm and normal heart sounds Abdominal Exam Abdominal exam: Present soft and normal bowel sounds Extremities Exam Extremities exam: Present normal inspection and full ROM Back Exam Back exam: Present normal inspection and full ROM Neurological Exam Neurological exam: Present alert, oriented X3 and CN II-XII intact Psychiatric Psychiatric exam: Present normal affect and normal mood Skin Skin exam: Present warm, dry, intact and normal color Course Quality Measures none Orders Category Date Time Status Urinary Catheter, Remove ONCE Care 09/11/24 14:08 Active Urinalysis, C/S if Indicated Stat Lab 09/11/24 15:38 Completed Vital Signs Vital signs: Vital Signs Temperature 97.8 F 09/11/24 13:48 Pulse Rate 75 09/11/24 13:48 Respiratory Rate 18 09/11/24 13:48 Blood Pressure 140/82 H 09/11/24 13:48 Pulse Oximetry (%) 97 09/11/24 13:48 Oxygen Delivery Method Room Air 09/11/24 13:48 97% room air within normal limits Urogenital - Male MDM Narrative MDM Narrative:: 89-year-old male presents emergency department requesting to have Edwards removed there was a post removed yesterday by [employer] [facility]. Patient requesting to have urinalysis to rule out infection. Edwards successfully removed. Urinalysis unremarkable. Patient appears nontoxic and is hemodynamic stable. Patient discharged ducted to follow-up with primary care provider and request referral to urologist. Instructed to return to emergency department for any worsening symptoms or urinary retention. Patient data External records reviewed:: [facility] previous records Clinical information provided by:: patient Social determinants that could affect healthcare access:: none Patient has the following chronic illnesses:: See chart How is presenting disease/condition affected by chronic disease/condition?: uneffected by Evaluation data The following diagnostics were reviewed and interpreted by me:: lab results Lab and/or radiology exams considered but not ordered:: Ordered Interpretation Summary: Interpreted by me Medications / Prescriptions Medications or Prescriptions considered but not ordered:: N/A Medication administrations:: N/A Consultations Consultation(s) initiated? (list below): No Diagnosis Urogenital Male Differential Diagnosis: urinary tract infection and acute reten tion of urine Most likely diagnosis given after review of the tests above:: Edwards removal Admission Indicated Admission indicated?: not indicated Admission Request Was there a request for admission?: No Disposition Plan Disposition Plan: Discharge Discharge Attestation Discharge Attestation: The patient and all family members were given an opportunity to ask questions and understood the discharge instructions. Discharge instructions specifically effects, indications for sooner follow up or return to the emergency department, and the expected course of current diagnosis. Patient condition: Stable Discharge Plan Plan Patient Disposition: HOME (Self Care) Disposition Comment: Stable Prescriptions/Referrals Prescriptions/Med Rec: No Action albuterol sulfate 90 mcg/actuation HFA aerosol inhaler 2 puff INHALATION Q4H PRN (Reason: SOB) Trelegy Ellipta 100-62.5-25 mcg blister with device 1 inh INHALATION DAILY Patient Comments: INHALE 1 PUFFS BY MOUTH EVERY DAY FOR COPD GARGLE WITH WATER AFTER EACH USE atorvastatin 20 mg tablet 20 mg PO HS Patient Comments: TAKE 1 TABLET (20 MG) BY ORAL ROUTE ONCE NIGHTLY FOR HIGH CHOLESTEROL allopurinol 100 mg tablet 200 mg PO DAILY Patient Comments: TAKE 2 TABLET (200 MG) BY ORAL ROUTE DAILY FOR GOUT. montelukast 10 mg tablet 10 mg PO DAILY Patient Comments: TAKE 1 TABLET (10 MG) BY ORAL ROUTE ONCE DAILY IN THE EVENING FOR PERSISTENT ALLERGIES finasteride 5 mg Tablet 5 mg PO QDAY 30 Days Qty: 30 0RF artificial tear(hirjp-[id number]-bny) 0.1-0.3-0.2 % Drops 1 drp Both eyes PRN PRN (Reason: To Keep Eyes Moist and pain) 14 Days Qty: 15 0RF simethicone 80 mg Tablet,Chewable 80 mg PO QID PRN (Reason: Gas) 14 Days Qty: 14 0RF tamsulosin 0.4 mg Capsule 0.8 mg PO HS 30 Days Qty: 60 0RF Referrals: No Primary/Family,Physician [Referring Provider] - In 1 week Problem List Clinical Impression: Encounter for Edwards catheter removal Patient/Caregiver Discharge Instructions Discharge Activity: activity as tolerated Additional Instructions: Follow-up with primary care provider and request referral to urologist if symptoms persist. Return to emergency department for any urinary retention worsening symptoms or as needed. Print Language: [place] Stand Alone Forms: [employer] Award Info., Patient Portal Info Letter PA/HEAD WAITER/WAITRESS BANQUET Supervising Physician PA/WENDI Supervising Physician: Dr. Leggett
[2024-09-11 16:05] LABS: Collection Type, Urine Clean Catch; Squamous Epithelial Cell,Urine 0 /hpf (0-5)
[2024-09-11 16:12] LABS: Bilirubin,Urine Negative (Negative); Blood,Urine 1+ (Negative); Clarity,Urine Clear (Clear/Hazy); Color,Urine Lt-Yellow (Lt Yel-Yel); Culture Indicated,Urine Not Indicated; Glucose, Urine Negative (Negative); Ketones,Urine Negative (Negative); Leukocyte Esterase,Urine Positive (Negative); Nitrite,Urine Negative (Negative); PH,Urine 5.5 (5.0-7.0); Protein,Urine Negative (Neg - Trace); RBC,Urine 2 /hpf (0-3); Specific Gravity,Urine 1.008 (1.001-1.035); Urobilinogen,Urine Negative mg/dL (0.0-1.0); WBC,Urine 2 /hpf (0-5)
== END 2024-09-11 16:44 | disposition home or self-care (01) ==
PROVIDERS: Emergency Provider Emergency Medicine; PCP Family Medicine
DX: Z46.6 Encounter for fitting and adjustment of urinary device (principal)
CPT/HCPCS: 81001; 99283

== ENCOUNTER 2024-09-26 13:05 | Emergency (ER) | payer MEDICARE, MEDICAID, SELFPAY ==
--- NOTE | 2024-09-26 13:26 | XR_ITS ---
Examination: PA lateral chest 2 views TECHNIQUE: Upright PA lateral chest 2 views Exam date 9: September 26, 2024 1339 hours Comparison August 23, 2023 INDICATIONS: Coughing fever beginning 2 days ago. FINDINGS: Normal heart size Lungs are clear. Moderate thoracic spondylosis IMPRESSION: No pneumonia identified
--- NOTE | 2024-09-26 13:27 | XR_ITS ---
Examination: CT abdomen and pelvis without contrast. Coronal 3-D reconstructions. Sagittal 2-D reconstructions. Date and time of exam:September 21, 20122024 at 1637 hours Comparison August 28, 2024 INDICATIONS: Generalized abdominal pain today CTDI: vol (mGy): 4.1 DLP: (mGycm): 207 Technique: Axial images of the abdomen have been obtained, 3 mm slice thickness Intravenous contrast material has not been administered. Low dose protocols were performed. One or more of the following dose reduction techniques were used; automated exposure control, adjustment of the mA and/or KV according to patient size, use of iterative reconstruction technique. Findings: Stable 26 mm upper right lobe liver lesion Stable 15 mm left lobe liver lesion Tiny liver calcifications Contracted gallbladder Spleen is not enlarged No pancreatic or adrenal mass Numerous bilateral renal cysts, no hydronephrosis renal or ureteral calculi Abdominal aortic calcification no aneurysmal dilatation No pericecal inflammatory change Urinary bladder wall thickening up to 8 mm Prostatomegaly, AP dimension 4.4 cm Moderate to advanced disc narrowing L4-L5, L5-S1 IMPRESSION: Stable liver lesions, consider MRI abdomen liver follow-up No CT findings of bowel obstruction or diverticulitis No renal or ureteral calculi Moderate prostatomegaly Urinary bladder wall thickening, differential would include cystitis, early bladder carcinoma not excluded
--- NOTE | 2024-09-26 13:27 | PD.EDRME ---
Rapid Medical Screening Exam RME Arrival date/time: 09/26/24 13:05 89-year-old male presents to the emergency department complains of cough for the last couple of days patient reports mild coughing he developed pain and swelling in the right inguinal area patient ports history of hernia repair Chief Complaint: Abdominal Pain
[2024-09-26 13:28] VITALS: BP 156/71; PULSE 76; RESP 18; TEMP 36.6; O2SAT 99; BMI 26.5
[2024-09-26 13:41] LABS: Basophils % (Auto) 0 % (0-2.5); Eosinophils # (Auto) 0.9 Thou/mm3 (0.0-0.5); Eosinophils % (Auto) 16 % (0-10); Hematocrit 38.6 % (41.0-53.0); Hemoglobin 12.9 g/dL (13.5-16.0); Immature Granulocytes % (Auto) 0 % (0-0); Immature Granulocytes Auto 0.01 Thou/mm3 (0.00-0.00); Lymphocytes # (Auto) 1.7 Thou/mm3 (1.0-4.8); Lymphocytes % (Auto) 29 % (10-50); Mean Corpuscular HGB Conc 33.4 g/dl (31.0-37.0); Mean Corpuscular Hemoglobin 30.9 pg (25.0-35.0); Mean Corpuscular Volume 92 fL (80-100); Monocytes # (Auto) 0.5 Thou/mm3 (0.0-0.8); Monocytes % (Auto) 9 % (0-12); Neutrophils # (Auto) 2.7 Thou/mm3 (1.8-7.7); Neutrophils % (Auto) 46 % (37-80); Nucleated Red Blood Cell % 0 /100 WBC (0); Platelet Count 249 Thou/mm3 (140-440); RDW Standard Deviation 44.6 fL (35.1-43.9); Red Blood Count 4.18 Miln/mm3 (4.50-5.90); White Blood Count 5.8 Thou/mm3 (3.8-10.6)
[2024-09-26] MEDS: HYDROcodone/APAP 5/325 TABLET 1 TAB PO (13:43)
[2024-09-26 14:01] LABS: Collection Type, Urine Clean Catch
[2024-09-26 14:02] LABS: B-Type Natriuretic Peptide 77 pg/mL (0-100)
[2024-09-26 14:05] LABS: Alanine Aminotransferase 22 U/L (10-49); Albumin, Serum 4.8 gm/dL (3.4-4.8); Albumin/Globulin Ratio 1.8 (1.2-2.2); Alkaline Phosphatase 74 U/L (46-116); Anion Gap 9 (7-16); Aspartate Amino Transferase 26 U/L (0-34); BUN/Creatinine Ratio 13 Ratio (12-20); Bilirubin,Total 0.4 mg/dL (0.3-1.2); Blood Urea Nitrogen 15 mg/dL (9-23); Calcium 9.3 mg/dL (8.3-10.6); Calcium (Corrected) 9.3 mg/dL (8.5-10.1); Carbon Dioxide 26.9 mMol/L (20.0-31.0); Chloride 103 mMol/L (98-107); Creatinine (Component) 1.2 mg/dL (0.6-1.3); Estimated Creatinine Clearance 33.5 mL/min (>60); Globulin 2.7 gm/dL (2.3-3.5); Glucose 104 mg/dL (74-106); Lipase 50 U/L (12-53); Osmolality,Calculated 278 (275-295); Potassium 3.9 mMol/L (3.4-5.1); Sodium 139 mMol/L (136-145); Total Protein 7.5 gm/dL (5.7-8.2); eGFR 59 See Note
[2024-09-26 14:13] LABS: Bilirubin,Urine Negative (Negative); Blood,Urine Trace (Negative); Clarity,Urine Clear (Clear/Hazy); Color,Urine Lt-Yellow (Lt Yel-Yel); Glucose, Urine Negative (Negative); Ketones,Urine Negative (Negative); Leukocyte Esterase,Urine Positive (Negative); Nitrite,Urine Negative (Negative); Protein,Urine Trace (Neg - Trace); RBC,Urine 3 /hpf (0-3); Specific Gravity,Urine 1.013 (1.001-1.035); Squamous Epithelial Cell,Urine < 1 /hpf (0-5); Urobilinogen,Urine Negative mg/dL (0.0-1.0); WBC,Urine 11 /hpf (0-5)
[2024-09-26 14:33] LABS: Culture Indicated,Urine Yes
--- NOTE | 2024-09-26 15:43 | EDNOTE_ITS ---
ED General RME/HPI General Chief complaint: Abdominal Pain Stated complaint: ABD PAIN, COUGH Time Seen by Provider: 09/26/24 15:21 Arrival date/time: 09/26/24 13:05 RME / HPI [facility]: 09/26/24 13:05 cough x4 days , followed by pain and swelling in the right inguinal area x1 day. He has a history of RT inguinal hernia repair HPI: Patient is a 89-year-old [place] ([facility]) speaking male with past medical history of COPD/asthma, gout, BPH, hyperlipidemia and right inguinal hernia s/p repair, who presents to the emergency department complains of cough x4 days, followed by pain and swelling in the right inguinal area x1 day. He has a history of RT inguinal hernia repair a few years ago, which he tolerated well until recently when he started having respiratory symptoms. Patient endorses sharp pain in the right inguinal area, worse on coughing 9/10. Patient has not taken any medications for it, pain subsides spontaneously over 5-10 minutes. Grandson present at bedside, as per home patient has lost 5-10 pounds over the last 3 months. He has decreased appetite and at baseline has 2?3/10 severity of right lower abdominal and right inguinal area pain. He denies any fevers, nausea or vomiting, or constipation at this time. Patient does endorse having softer stools over the last 1 week with 2?3 bowel movements every day. He denies any blood or mucus in his stools. He is able to ambulate, however pain is worse and causing him to lean forward when walking. Past surgical history: RT inguinal hernia repair Allergies: NKFDA Social history: Tobacco?Use:?Denies ETOH?Use:?Denies Drug?Note:?Denies Social?History?Note:?Lives?at home with family Family history: Denies any family history of cancers, sudden cardiac or stroke. Related Data Home Medications ?Medication ?Instructions ?Recorded ?Confirmed albuterol sulfate 90 mcg/actuation 2 puff inhalation Q4H PRN SOB 09/11/21 08/29/24 aerosol inhaler allopurinol 100 mg tablet 200 mg PO DAILY 08/29/24 08/29/24 atorvastatin 20 mg tablet 20 mg PO HS 08/29/24 08/29/24 fluticasone fur. 100 mcg-umeclid 1 inh inhalation DAILY 08/29/24 08/29/24 62.5 mcg-vilant 25 mcg inhalat.powder (Trelegy Ellipta) montelukast 10 mg tablet 10 mg PO DAILY 08/29/24 08/29/24 Previous Rx's ?Medication ?Instructions ?Recorded finasteride 5 mg tablet 5 mg PO QDAY 30 days #30 tabs 08/31/24 tamsulosin 0.4 mg capsule 0.8 mg (2 x 0.4 mg) PO HS 30 days 09/01/24 #60 caps acetaminophen 500 mg capsule 1,000 mg (2 x 500 mg) PO Q8HR PRN 09/26/24 pain #30 caps guaifenesin 1,200 mg tablet, 1,200 mg PO BID PRN cough or 09/26/24 extended release 12 hr (Mucinex) congestion #20 tabs oseltamivir 75 mg capsule (Tamiflu) 75 mg PO QDAY 5 days #5 caps 09/26/24 Allergies Allergy/AdvReac Type Severity Reaction Status Date / Time No Known Allergies Allergy Verified 09/11/24 12:21 Review of Systems Review of Systems Narrative Review of Systems: GENERAL: Denies fevers/chills or diaphoresis. WT loss 5-10lbs in 3-6 mo. HEENT: Denies headache or visual/hearing changes. Denies nasal discharge. NEURO: Denies unusual weakness or difficulty speaking. CARDIO: Denies chest pain or palpitations. PULM: Denies SOB, coughing, or wheezing. GI: RLQ inguinal pain, no N/V/C/D. Reports having BMs and passing flatus URO: Denies burning/itching/pain/urinary changes. MSK/EXT/SKIN: Denies joint/skeletal/muscle pain, issues/changes in upper or lower extremities, itchiness, or superficial pain. PSYCH: Cooperative, pleasant mood & affect. The rest of the review of systems is otherwise negative. ED Exam Narrative Physical exam: Constitutional Alert, oriented x3 and comfortable. Elderly, small build. Grandson at bedside. HEENT Vision grossly intact. Patent nares. Trachea midline. Respiratory Chest normal on inspection and clear to auscultation bilaterally. Cardiovascular S1 and S2 audible, RRR. No murmurs or carotid bruit. No gross JVD. Abdominal Non reducible B/L inguinal hernias palpable R>L, moderately tender to palpation. BS + Genitourinary No bladder tenderness, no flank pain. Normal to palpation. Musculoskeletal Extremities tone within normal limits. No LE edema. Neurological CN II - XII grossly intact. Extremity motor and sensation grossly intact. Skin Warm, dry and intact. Senile purpura Psychiatric Patient has a good affect, is cooperative. Course Quality Measures none Orders Category Date Time Status Bedside Influenza A&B Antigen Test NOW Care 09/26/24 13:[address] Screening NOW Care 09/26/24 15:[address] abdomen pelvis wo con Stat Exams 09/26/24 13:27 Completed XR chest 2V Stat Exams 09/26/24 13:26 Completed BNP [B-Type Natriuretic Peptide] Stat Lab 09/26/24 13:33 Completed CBC Stat Lab 09/26/24 13:33 Completed Comprehensive Metabolic Panel Stat Lab 09/26/24 13:33 Completed Lipase Stat Lab 09/26/24 13:33 Completed UA, C/S IF [Urinalysis, C/S if Indicated] Stat Lab 09/26/24 13:05 Completed Urine Culture Stat Lab 09/26/24 13:05 Received HYDROcodone*/APAP 5/325 [[place] 5/325] Med 09/26/24 13:26 Discontinued 1 tab PO X1 ONE Oseltamivir [Tamiflu] Med 09/26/24 15:57 Discontinued 75 mg PO X1 ONE Vital Signs Vital signs: Vital Signs Temperature 98 F 09/26/24 13:28 Pulse Rate 76 09/26/24 13:28 Respiratory Rate 18 09/26/24 13:28 Blood Pressure 156/71 H 09/26/24 13:28 Pulse Oximetry (%) 99 09/26/24 13:28 Oxygen Delivery Method Room Air 09/26/24 13:28 [facility] Patient data External records reviewed:: [facility] previous records Clinical information provided by:: patient and family Social determinants that could affect healthcare access:: none Patient has the following chronic illnesses:: COPD/asthma, gout, BPH, hyperlipidemia and right inguinal hernia s/p repair How is presenting disease/condition affected by chronic disease/condition?: e xacerbated by Evaluation data The following diagnostics were reviewed and interpreted by me:: lab results, radiology exam(s) and EKG tracing(s) Lab and/or radiology exams considered but not ordered:: US Interpretation Summary: Patient is a 89-year-old male who presented with RT inguinal pain. CT abdomen shows findings similar to what was seen on CT in August 2024 1 month ago. Patient is scheduled to follow-up with Dr. Davis outpatient for cystoscopy and further workup. Will discharge patient on Tylenol, Mucinex for cough and Tamiflu given influenza on positive this presentation. Medications Medications considered but not ordered:: Morphine for pain admitted for right inguinal pain. Medication administrations:: Medication Administration History Discontinued Medications Hydrocodone Bitart/Acetaminophen (Hydrocodone/Apap 5/325 Tablet) 1 tab PO X1 ONE Stop: 09/26/24 13:27 Last Admin: 09/26/24 13:43 Dose: 1 tab Documented By: Oseltamivir Phosphate (Oseltamivir 75 Mg Capsule) 75 mg PO X1 ONE Stop: 09/26/24 15:58 Continue Consultations Consultation(s) initiated? (list below): No Consultation #1 (Physician, Specialty, Details): None Diagnosis Differential Diagnosis ED Complaint MDM: Diverticulitis, abscess Most likely diagnosis given after review of the tests above:: Urinary bladder fibrotic changes s/p RT inguinal hernia repair Pending urology evaluation outpatient Admission Indicated Admission indicated?: not indicated Explain why admission is indicated or not indicated:: Patient is scheduled to follow-up with Dr. Davis outpatient for cystoscopy and further workup. Admission Request Was there a request for admission?: No Disposition Plan Disposition Plan: Discharge Discharge Attestation Discharge Attestation: The patient and all family members were given an opportunity to ask questions and understood the discharge instructions. Discharge instructions specifically effects, indications for sooner follow up or return to the emergency department, and the expected course of current diagnosis. Patient condition: Stable Medical Decision Making MDM Narrative MDM Narrative: Patient has a 89-year-old male who presented to the ER with persistent right inguinal pain worse on coughing. Patient has a history of right inguinal hernia repair, however has developed another hernia, which is nonreducible at the time of presentation. Patient does have bilateral inguinal hernias, right more pronounced than left. He denies any fevers, is able to have bowel movements and able to pass flatus at this time. Diagnostics: CT abdomen pelvis showed findings similar to what was seen on CT in August 2024 one month ago - Urinary bladder wall thickening, small portion of the urinary bladder is present in a right inguinal hernia Discharge plan: - Patient is scheduled to follow-up with Dr. Davis outpatient for cystoscopy and further workup. - Will discharge patient on Tylenol for pain and Mucinex for cough - Ordered Tamiflu 75mg x 5 days given influenza on positive this presentation. - Strict return instructions if symptoms worsen Plan of care discussed with attending Dr Moeller , - Jed Santiago M.D. PGY2 Differential Diagnosis Differential Diagnosis: Diverticulitis, abscess Lab Data 09/26/24 13:33 09/26/24 13:33 Labs: Lab Results 09/26/24 09/26/24 Range/Units 13:05 13:33 WBC 5.8 (3.8-10.6) Thou/mm3 RBC 4.18 L (4.50-5.90) Miln/mm3 Hgb 12.9 L (13.5-16.0) g/dL Hct 38.6 L (41.0-53.0) % MCV 92 (80-100) fL MCH 30.9 (25.0-35.0) pg MCHC 33.4 (31.0-37.0) g/dl RDW Std Deviation 44.6 H (35.1-43.9) fL Plt Count 249 (140-440) Thou/mm3 Neut % (Auto) 46 (37-80) % Lymph % (Auto) 29 (10-50) % [place] % (Auto) 9 (0-12) % Eos % (Auto) 16 H (0-10) % Baso % (Auto) 0 (0-2.5) % Neut # (Auto) 2.7 (1.8-7.7) Thou/mm3 Lymph # (Auto) 1.7 (1.0-4.8) Thou/mm3 [place] # (Auto) 0.5 (0.0-0.8) Thou/mm3 Eos # (Auto) 0.9 H (0.0-0.5) Thou/mm3 Baso # (Auto) 0.0 (0.0-0.2) Thou/mm3 Immature Gran # (Auto) 0.01 H (0.00-0.00) Thou/mm3 Absolute Nucleated RBC 0.00 (0.00-0.00) Thou/mm3 Immature Gran % 0 (0-0) % Nucleated RBC % 0 (0) /100 WBC Sodium 139 (136-145) mMol/L Potassium 3.9 (3.4-5.1) mMol/L Chloride 103 (98-107) mMol/L Carbon Dioxide 26.9 (20.0-31.0) mMol/L Anion Gap 9 (7-16) BUN 15 (9-23) mg/dL Creatinine 1.2 (0.6-1.3) mg/dL Estim Creat Clear Calc 33.5 L (>60) mL/min eGFR 59 L (60 - ) See Note BUN/Creatinine Ratio 13 (12-20) Ratio Glucose 104 (74-106) mg/dL Calculated Osmolality 278 (275-295) Calcium 9.3 (8.3-10.6) mg/dL Corrected Calcium 9.3 (8.5-10.1) mg/dL Total Bilirubin 0.4 (0.3-1.2) mg/dL AST 26 (0-34) U/L ALT 22 (10-49) U/L Alkaline Phosphatase 74 (46-116) U/L B-Natriuretic Peptide 77 (0-100) pg/mL Total Protein 7.5 (5.7-8.2) gm/dL Albumin 4.8 (3.4-4.8) gm/dL Globulin 2.7 (2.3-3.5) gm/dL Albumin/Globulin Ratio 1.8 (1.2-2.2) Lipase 50 (12-53) U/L Ur Collection Type Clean Catch Urine Color Lt-Yellow (Lt Yel-Yel) Urine Clarity Clear (Clear/Hazy) Urine pH 6.0 (5.0-7.0) Ur Specific [place] 1.013 (1.001-1.035) Urine Protein Trace (Neg - Trace) Urine Glucose (UA) Negative (Negative) Urine Ketones Negative (Negative) Urine Blood Trace (Negative) Urine Nitrite Negative (Negative) Urine Bilirubin Negative (Negative) Urine Urobilinogen (Auto) Negative (0.0-1.0) mg/dL Ur Leukocyte Esterase Positive (Negative) Urine RBC 3 (0-3) /hpf Urine WBC 11 H (0-5) /hpf Ur Squamous Epith Cells < 1 (0-5) /hpf Urine Bacteria None (None) Ur Culture Indicated? Yes Discharge Plan Plan Patient Disposition: HOME (Self Care) Patient condition on transfer: Stable Prescriptions/Referrals Prescriptions/Med Rec: New oseltamivir [Tamiflu] 75 mg capsule 75 mg PO QDAY 5 Days Qty: 5 0RF acetaminophen 500 mg capsule 1,000 mg PO Q8HR PRN (Reason: pain) Qty: 30 0RF guaifenesin [Mucinex] 1,200 mg tablet extended release 12hr 1,200 mg PO BID PRN (Reason: cough or congestion) Qty: 20 0RF No Action albuterol sulfate 90 mcg/actuation HFA aerosol inhaler 2 puff INHALATION Q4H PRN (Reason: SOB) Trelegy Ellipta 100-62.5-25 mcg blister with device 1 inh INHALATION DAILY Patient Comments: INHALE 1 PUFFS BY MOUTH EVERY DAY FOR COPD GARGLE WITH WATER AFTER EACH USE atorvastatin 20 mg tablet 20 mg PO HS Patient Comments: TAKE 1 TABLET (20 MG) BY ORAL ROUTE ONCE NIGHTLY FOR HIGH CHOLESTEROL allopurinol 100 mg tablet 200 mg PO DAILY Patient Comments: TAKE 2 TABLET (200 MG) BY ORAL ROUTE DAILY FOR GOUT. montelukast 10 mg tablet 10 mg PO DAILY Patient Comments: TAKE 1 TABLET (10 MG) BY ORAL ROUTE ONCE DAILY IN THE EVENING FOR PERSISTENT ALLERGIES finasteride 5 mg Tablet 5 mg PO QDAY 30 Days Qty: 30 0RF tamsulosin 0.4 mg Capsule 0.8 mg PO HS 30 Days Qty: 60 0RF Referrals: Rj Irizarry MD [Primary Care Provider] - In 1 week Problem List Clinical Impression: Influenza, Abdominal pain Patient/Caregiver Discharge Instructions Discharge Activity: resume usual activities Other Activity Instructions:: Diagnostics: CT abdomen pelvis showed findings similar to what was seen on CT in August 2024 one month ago - Urinary bladder wall thickening, small portion of the urinary bladder is present in a right inguinal hernia Discharge plan: - Patient is scheduled to follow-up with Dr. Davis outpatient for cystoscopy and further workup. - Will discharge patient on Tylenol for pain and Mucinex for cough - Ordered Tamiflu 75mg x 5 days given influenza on positive this presentation. - Strict return instructions if symptoms worsen Education Materials: Abdominal Pain, The Flu (Influenza), Measuring Your Pain Print Language: Syriac Stand Alone Forms: [employer] Award Info., Patient Portal Info Letter
[2024-09-26] MEDS: OSELTAMIVIR 75 MG CAPSULE PO (17:21)
== END 2024-09-26 17:40 | disposition home or self-care (01) ==
PROVIDERS: Nurse Practitioner Primary Care; Emergency Provider Emergency Medicine; PCP Family Medicine
DX: J11.1 Influenza due to unidentified influenza virus with other respiratory manifestations (principal); R10.9 Unspecified abdominal pain; M10.9 Gout, unspecified; N40.0 Benign prostatic hyperplasia without lower urinary tract symptoms; J44.89 Other specified chronic obstructive pulmonary disease; E78.5 Hyperlipidemia, unspecified
CPT/HCPCS: 36415; 71046; 74176; 80053; 81001; 83690; 83880; 85025; 87086; 87400; 99284; A9270

== ENCOUNTER → 2024-10-20 | Outpatient (BNVA) | payer MEDICARE, MEDICAID, SELFPAY | END | disposition home or self-care (01) | PROVIDERS: PCP Family Medicine; Referring Provider Family Medicine; Visit Provider Urology | DX: N40.1 Benign prostatic hyperplasia with lower urinary tract symptoms (principal); N13.8 Other obstructive and reflux uropathy; I10 Essential (primary) hypertension; E78.5 Hyperlipidemia, unspecified; Z87.440 Personal history of urinary (tract) infections; N32.9 Bladder disorder, unspecified; J44.9 Chronic obstructive pulmonary disease, unspecified | CPT/HCPCS: 81003; 99202; G0463 ==

== ENCOUNTER → 2025-02-14 | Outpatient (CLI) | payer MEDICARE, MEDICAID, SELFPAY ==
[2025-02-14 09:47] LABS: Basophils % (Auto) 1 % (0-2.5); Eosinophils # (Auto) 0.5 Thou/mm3 (0.0-0.5); Eosinophils % (Auto) 12 % (0-10); Hematocrit 38.8 % (41.0-53.0); Immature Granulocytes % (Auto) 0 % (0-0); Immature Granulocytes Auto 0.01 Thou/mm3 (0.00-0.00); Lymphocytes # (Auto) 1.5 Thou/mm3 (1.0-4.8); Lymphocytes % (Auto) 35 % (10-50); Mean Corpuscular HGB Conc 33.5 g/dl (31.0-37.0); Mean Corpuscular Hemoglobin 31.6 pg (25.0-35.0); Mean Corpuscular Volume 94 fL (80-100); Monocytes # (Auto) 0.5 Thou/mm3 (0.0-0.8); Monocytes % (Auto) 11 % (0-12); Neutrophils # (Auto) 1.8 Thou/mm3 (1.8-7.7); Neutrophils % (Auto) 42 % (37-80); Nucleated Red Blood Cell % 0 /100 WBC (0); Platelet Count 293 Thou/mm3 (140-440); RDW Standard Deviation 48.3 fL (35.1-43.9); Red Blood Count 4.12 Miln/mm3 (4.50-5.90); White Blood Count 4.4 Thou/mm3 (3.8-10.6)
[2025-02-14 10:01] LABS: Collection Type, Urine Clean Catch; Squamous Epithelial Cell,Urine 0 /hpf (0-5)
[2025-02-14 10:28] LABS: Bilirubin,Urine Negative (Negative); Blood,Urine 1+ (Negative); Clarity,Urine Clear (Clear/Hazy); Color,Urine Yellow (Lt Yel-Yel); Glucose, Urine Negative (Negative); Hyaline Casts,Urine < 1 /hpf (0-1); Ketones,Urine Negative (Negative); Leukocyte Esterase,Urine Positive (Negative); Nitrite,Urine Negative (Negative); Protein,Urine 1+ (Neg - Trace); RBC,Urine 5 /hpf (0-3); Specific Gravity,Urine 1.018 (1.001-1.035); Urobilinogen,Urine Negative mg/dL (0.0-1.0); WBC,Urine 6 /hpf (0-5)
[2025-02-14 11:25] LABS: Alanine Aminotransferase 11 U/L (10-49); Albumin/Globulin Ratio 1.6 (1.2-2.2); Alkaline Phosphatase 61 U/L (46-116); Anion Gap 12 (7-16); Aspartate Amino Transferase 20 U/L (0-34); BUN/Creatinine Ratio 13 Ratio (12-20); Bilirubin,Total 0.6 mg/dL (0.3-1.2); Blood Urea Nitrogen 13 mg/dL (9-23); Calcium 8.7 mg/dL (8.3-10.6); Calcium (Corrected) 8.7 mg/dL (8.5-10.1); Carbon Dioxide 29.1 mMol/L (20.0-31.0); Cardiac Risk Estimate 3.5 RATIO (4.0-6.7); Chloride 104 mMol/L (98-107); Cholesterol 186 mg/dL (132-200); Globulin 2.5 gm/dL (2.3-3.5); Glucose 100 mg/dL (74-106); HDL Cholesterol 53 mg/dL (40-60); LDL Cholesterol,Calculated 112 mg/dL (0-130); Osmolality,Calculated 288 (275-295); Potassium 4.3 mMol/L (3.4-5.1); Sodium 145 mMol/L (136-145); Thyroid Stimulating Hormone 0.52 uIU/mL (0.55-4.78); Total Protein 6.5 gm/dL (5.7-8.2); Triglycerides 103 mg/dL (30-150); eGFR > 60 See Note
== END | disposition home or self-care (01) ==
LOC: COPL 09:11
PROVIDERS: PCP Family Medicine; Referring Provider Family Medicine; Visit Provider Family Medicine
DX: Z00.00 Encounter for general adult medical examination without abnormal findings (principal); D64.9 Anemia, unspecified; E78.2 Mixed hyperlipidemia; I10 Essential (primary) hypertension; R94.6 Abnormal results of thyroid function studies
CPT/HCPCS: 36415; 80053; 80061; 81001; 84439; 84443; 85025

== ENCOUNTER → 2025-06-12 | Outpatient (BNVA) | payer OTHER, MEDICAID, SELFPAY | END | disposition home or self-care (01) | PROVIDERS: PCP Family Medicine; Referring Provider Family Medicine; Visit Provider Urology | DX: N40.0 Benign prostatic hyperplasia without lower urinary tract symptoms (principal); J44.9 Chronic obstructive pulmonary disease, unspecified | CPT/HCPCS: 81003; 99212; G0463 ==

== ENCOUNTER 2025-07-09 10:31 | Emergency (ER) | payer MEDICARE, MEDICAID, SELFPAY ==
--- NOTE | 2025-07-09 11:05 | XR_ITS ---
EXAMINATION: PA lateral chest 2 views TECHNIQUE: Upright PA lateral chest 2 views Date and time: July 09, 2025, 1105 hours, comparison September 26, 2024. INDICATIONS: Coughing 5 days. FINDINGS: Mild accentuation of basilar bronchovascular markings. Normal heart size. No lobar pneumonia. Prominent osteopenia IMPRESSION: Basilar bronchitis pattern
--- NOTE | 2025-07-09 11:15 | EDNOTE_ITS ---
<Statement entered by Nichole Gomes MD - 07/16/25 14:33> As co-signing physician, I was present and available for consult prn. I concur with the plan and care as documented by the midlevel provider. ED Fever RME/HPI General Chief Complaint: Fever Stated Complaint: FEVER, FLU, COUGHING Time Seen by Provider: 07/09/25 10:34 Arrival date/time: 07/09/25 10:31 This is an 89-year-old male that comes into the emergency room with complaints of cough and fever that started last night. Patient's family member at the bedside states that patient has not been around any sick contacts. Related Data Home Medications ?Medication ?Instructions ?Recorded ?Confirmed albuterol sulfate 90 mcg/actuation 2 puff inhalation Q 4H PRN SOB 09/11/21 06/12/25 aerosol inhaler allopurinol 100 mg tablet 200 mg PO DAILY 08/29/24 atorvastatin 20 mg tablet 20 mg PO HS 08/29/24 5 fluticasone fur. 100 mcg-umeclid 1 inh inhalation ITALIA Y 08/29/24 06/12/25 62.5 mcg-vilant 25 mcg inhalat.powder (Trelegy Ellipta) montelukast 10 mg tablet 10 mg PO DAILY 08/29/2405/16 Previous Rx's ?Medication ?Instructions ?Recorded acetaminophen 500 mg capsule 1,000 mg (2 x 500 mg) PO Q8HR PRN 09/26/24 pain #30 caps guaifenesin 1,200 mg tablet, 1,200 mg PO BID PRN cough or 09/26/24 extended release 12 hr (Mucinex) congestion #20 tabs albuterol sulfate 90 mcg/actuation 2 puff inhalation Q ID PRN 07/09/25 aerosol inhaler (Ventolin HFA) shortness of breath or wheezing #8.5 grams benzonatate 100 mg capsule 100 mg PO BID PRN cough #20 caps 07/09/25 Allergies Allergy/AdvReac Type Severity Reaction Status Date / Time No Known Allergies Allergy Verified 07/09/25 10:33 Review of Systems Review of Systems Systems Reviewed: All systems reviewed, normal except as documented Past Medical History Past Medical History CARDIAC: Positive Cardiac Disorders; Negative Congestive Heart Failure RESPIRATORY: Positive Chronic Obstructive Pulmonary Disease (COPD); Negative Asthma GENITOURINARY: Negative Renal Disease ENDOCRINE: Negative Diabetes Mellitus Type 1 or Diabetes Mellitus Type 2 HEMATOLOGIC: Negative Sickle Cell Disease Social History SMOKING STATUS: Never smoker Physical Exam Narrative Physical exam: VITAL SIGNS: Reviewed. GENERAL APPEARANCE: Alert and interactive, follows commands, no acute distress, HEAD AND FACE: Non-traumatic. ENT: PERRL, conjuctiva pink and clear, eyelid no trauma, Mucous membrane moist. NECK: Supple, nontender, no nuchal rigidity. CHEST: No tenderness, no crepitus, no paradoxical movement, no retractions. LUNGS: Clear, well ventilated, symmetric, no rales, no wheezing, slightly diminished at the bases. No rhonchi, no stridor, good breath sounds bilaterally. HEART: Regular rate, regular rhythm, no murmur, no gallops. ABDOMEN: Soft, nondistended, no guarding, nontender, no rebound, no masses, NEUROLOGICAL: Gross motor function intact sensory function intact, Appropriate for age. MUSCULOSKELETAL: low back nontender, full range of motion. EXTREMITIES: No redness no swelling no skin breakdown on bilateral foot and leg. Distal neurovascular status intact bilateral foot SKIN: Color pink, dry, no rash, no lacerations, no abrasions, no contusions. Course Quality Measures none Orders Category Date Time Status Bedside COVID-19 Antigen Test NOW Care 07/09/25 11:05 Completed Bedside Influenza A&B Antigen Test NOW Care 07/09/25 11:05 Completed XR chest 2V Stat Exams 07/09/25 11:05 Completed Urinalysis, C/S if Indicated Stat Lab 07/09/25 11:16 Completed Urine Culture Stat Lab 07/09/25 11:16 Completed cefTRIAXone [Rocephin] 1,000 mg Med 07/09/25 12:55 Discontinued Lidocaine 1% 20 ml [Xylocaine 1% 20 ML] 2.1 ml IM X1 Vital Signs Vital signs: Vital Signs Pulse Rate 78 07/09/25 13:30 Blood Pressure 122/78 07/09/25 13:30 Fever MDM Narrative MDM Narrative:: COVID and flu are negative. chest x ray: FINDINGS: Mild accentuation of basilar bronchovascular markings. Normal heart size. No lobar pneumonia. Prominent osteopenia IMPRESSION: Basilar bronchitis pattern I spoke to patient and daughter at length. Patient likely has a viral res piratory illness. I will send patient home with an inhaler. I looked at urine urine has some white cells and some blood. Patient does state that he has some discomfort sometimes but not often or consitent. Possible uti? Will give him a dose of Rocephin here. Will send a urine culture. patient and daughter to follow-up with urine culture with primary provider I instructed this and they verbalized understanding. aDragon dictation:and Although this document has been carefully reviewed, there may still be some phonetic and other typographical errors. These errors are purely grammatical due to imperfections in the software program and should not be construed in any way to compromise the substance of the patient's medical care during this visit. Patient data External records reviewed:: [facility] previous records Clinical information provided by:: patient Social determinants that could affect healthcare access:: none Patient has the following chronic illnesses:: See HPI How is presenting disease/condition affected by chronic disease/condition?: no chronic disease Evaluation data The following diagnostics were reviewed and interpreted by me:: radiology exam(s) Lab and/or radiology exams considered but not ordered:: None Interpretation Summary: See note Medications / Prescriptions Medications or Prescriptions considered but not ordered:: None Medication administrations:: Medication Administration History Discontinued Medications Ceftriaxone Sodium 1,000 mg/ (Lidocaine HCl 2.1 ml) 0 mg IM X1 ONE Stop: 07/09/25 12:56 Last Admin: 07/09/25 13:13 Dose: 1,000 mg Documented By: OA See MAR Consultations Consultation(s) initiated? (list below): No Diagnosis Fever Differential Diagnosis: viral infection, influenza and other (UTI, ) Most likely diagnosis given after review of the tests above:: Bronchitis Admission Indicated Admission indicated?: not indicated Admission Request Was there a request for admission?: No Disposition Plan Disposition Plan: Discharge Discharge Attestation Discharge Attestation: The patient and all family members were given an opportunity to ask questions and understood the discharge instructions. Discharge instructions specifically effects, indications for sooner follow up or return to the emergency department, and the expected course of current diagnosis. Patient condition: Stable Discharge Plan Plan Patient Disposition: HOME (Self Care) Patient condition on transfer: Stable Prescriptions/Referrals Prescriptions/Med Rec: New albuterol sulfate [Ventolin HFA] 90 mcg/actuation HFA aerosol inhaler 2 puff inhalation QID PRN (Reason: shortness of breath or wheezing) Qty: 8.5 0RF benzonatate 100 mg capsule 100 mg PO BID PRN (Reason: cough) Qty: 20 0RF No Action albuterol sulfate 90 mcg/actuation HFA aerosol inhaler 2 puff INHALATION Q4H PRN (Reason: SOB) Trelegy Ellipta 100-62.5-25 mcg blister with device 1 inh INHALATION DAILY Patient Comments: INHALE 1 PUFFS BY MOUTH EVERY DAY FOR COPD GARGLE WITH WATER AFTER EACH USE atorvastatin 20 mg tablet 20 mg PO HS Patient Comments: TAKE 1 TABLET (20 MG) BY ORAL ROUTE ONCE NIGHTLY FOR HIGH CHOLESTEROL allopurinol 100 mg tablet 200 mg PO DAILY Patient Comments: TAKE 2 TABLET (200 MG) BY ORAL ROUTE DAILY FOR GOUT. montelukast 10 mg tablet 10 mg PO DAILY Patient Comments: TAKE 1 TABLET (10 MG) BY ORAL ROUTE ONCE DAILY IN THE EVENING FOR PERSISTENT ALLERGIES acetaminophen 500 mg capsule 1,000 mg PO Q8HR PRN (Reason: pain) Qty: 30 0RF guaifenesin [Mucinex] 1,200 mg tablet extended release 12hr 1,200 mg PO BID PRN (Reason: cough or congestion) Qty: 20 0RF Referrals: Rj Irizarry MD [Primary Care Provider, Family Practice] - In 1 week Problem List Clinical Impression: Bronchitis, URI (upper respiratory infection) Patient/Caregiver Discharge Instructions Discharge Activity: activity as tolerated Education Materials: ED URI, Viral, No Abx (Adult) Additional Instructions: Follow up with primary provider in 1-2 days. Come back to ED if symptoms change or worsen Print Language: Bhutanese Stand Alone Forms: [employer] Award Info., Patient Portal Info Letter PA/COTA Supervising Physician CRAIG/WENDI Supervising Physician: [email or web address]
[2025-07-09 11:22] LABS: Collection Type, Urine Voided
[2025-07-09 11:47] LABS: Bacteria,Urine Rare; Bilirubin,Urine Negative (Negative); Blood,Urine Trace (Negative); Clarity,Urine Turbid (Clear/Hazy); Color,Urine Yellow (Lt Yel-Yel); Glucose, Urine Negative (Negative); Hyaline Casts,Urine 1 /hpf (0-1); Ketones,Urine Negative (Negative); Leukocyte Esterase,Urine Positive (Negative); Nitrite,Urine Negative (Negative); PH,Urine 5.5 (5.0-7.0); Protein,Urine 1+ (Neg - Trace); RBC,Urine 2 /hpf (0-3); Specific Gravity,Urine 1.023 (1.001-1.035); Squamous Epithelial Cell,Urine < 1 /hpf (0-5); Urobilinogen,Urine Negative mg/dL (0.0-1.0); WBC,Urine 13 /hpf (0-5)
[2025-07-09 11:48] LABS: Culture Indicated,Urine Yes
[2025-07-09] MEDS: cefTRIAXone 1,000 MG, LIDOCAINE 1% 20 ML 2.1 ML IM (13:13)
[2025-07-09 13:30] VITALS: BP 122/78; PULSE 78
== END 2025-07-09 13:31 | disposition home or self-care (01) ==
PROVIDERS: Emergency Provider Nurse Practitioner Family; PCP Family Medicine
DX: J40 Bronchitis, not specified as acute or chronic (principal); J06.9 Acute upper respiratory infection, unspecified
CPT/HCPCS: 71046; 81001; 87086; 87400; 87811; 99283; J0696; J3490